=== PATIENT | male | born 1980 | race Asian ===

== ENCOUNTER 2017-09-23 20:34 | Outpatient (CLI) | payer SELFPAY | END 2017-09-23 20:35 | disposition EMS.NT | LOC: EMS 20:34 | PROVIDERS: ATTEND Surgery | DX: Z03.89 Encounter for observation for other suspected diseases and conditions ruled out (principal) ==

== ENCOUNTER 2017-12-26 12:41 | Emergency (ER) | payer MEDICAID ==
[2017-12-26] MEDS ORDERED: LORazepam 0.5 MG TABLET PO STA (15:04)
[2017-12-26] MEDS ORDERED: LISINOPRIL 5 MG TABLET PO STA (15:04)
--- NOTE | 2017-12-26 15:07 | ED Physician Documentation ---
History of Present Illness - Stated complaint Stated Complaint: HIGH BP - Chief complaint Chief Complaint: General - Additonal information Additional information: hx from pt 37 male enrolled in [facility] detox last drink three days ago during intake today his BP was high approx 170/105 so he was sent to ER to have medical clearance for detox he is a little shaky but does not feel anxious, is not seeing things no SOLARES, no CP, no numbness or weakness Review of Systems Constitutional: denies: Fever Eyes: denies: Decreased vision Cardiac: denies: Chest pain / pressure Neurologic: denies: Focal weakness, Numbness, Headache PD PAST MEDICAL HISTORY - Present Medications Home Medications: Ambulatory Orders Medication Instructions Recorded Confirmed Lisinopril 5 mg PO DAILY #30 tablet 12/26/17 - Allergies Allergies/Adverse Reactions: Allergies Allergy/AdvReac Type Severity Reaction Status Date / Time Penicillins Allergy Unknown Verified 12/26/17 12:49 PD ED PE NORMAL - Vitals Vital signs reviewed: Yes - HEENT HEENT: PERRL (somewhat limited fundoscopic 2/2 contricted pupils but no pepilledema appreciated) - Cardiac Cardiac: RRR - Respiratory Respiratory: No respiratory distress, Clear bilaterally - Neuro Neuro: Alert and oriented X 3, No motor deficit, Normal speech Results - Vitals Vitals: Vital Signs - 24 hr 12/26/17 12:46 Temperature 36.6 C Heart Rate 94 Respiratory 18 Rate Blood Pressure 170/100 H O2 Saturation 99 Oxygen O2 Source Room air PD MEDICAL DECISION MAKING - ED course ED course: pt with moderate asymptomatic BP could partly be due to wdrawal sx - so gave ativan after cnfirming pt not driving only prior note in EMR was for EMS call for intoxtion - he was hypertesnive then too - so perhaps has underlying HTN - will start low dose lisinopril but advised pt to fup PMD to recheck after detox tx and if BP down may trial dc of ACEI no s/sx end organ dysfxn and do not think pt needs labs EKG etc - Sepsis Event Vital Signs: Vital Signs - 24 hr 12/26/17 12:46 Temperature 36.6 C Heart Rate 94 Respiratory 18 Rate Blood Pressure 170/100 H O2 Saturation 99 Oxygen O2 Source Room air Departure - Departure Disposition: 01 Home, Self Care Clinical Impression: High blood pressure Qualifiers: Hypertension type: unspecified Qualified Code(s): I10 - Essential (primary) hypertension Condition: Good Instructions: ED Hypertension New Begin Tx Prescriptions: Lisinopril 5 mg PO DAILY #30 tablet Comments: Your blood pressure is high The high blood pressure does not seem to have caused any damage so far The elevated blood pressure could be partly due to alcohol withdrawal But the numbers were high enough that I have started you on a low dose blood pressure medication for now. After you complete detox, I suggest you follow up at [facility] for a recheck - you may not need to continue the medication I think it is safe for you to proceed with your detox program
[2017-12-26 16:01] VITALS: BP 148/98
== END 2017-12-26 16:00 | disposition home or self-care (01) ==
LOC: ED 12:41
DX: I10 Essential (primary) hypertension (principal); F10.239 Alcohol dependence with withdrawal, unspecified
CPT/HCPCS: 99283; A9270

== ENCOUNTER 2022-02-21 21:40 | Emergency (ER) | payer MEDICAID ==
[2022-02-21] MEDS ORDERED: oxyCODONE 5 MG TABLET PO STA (23:38)
[2022-02-21 23:43] VITALS: BP 131/84
--- NOTE | 2022-02-21 23:51 | ED Physician Documentation ---
History of Present Illness - Stated complaint Stated Complaint: SOA,BELLY DRAINAGE - Chief complaint Chief Complaint: Abd Pain - History obtained from History obtained from: Patient - Additonal information Additional information: 41-year-old male with history of alcoholic cirrhosis presents with distended abdomen over the past couple weeks. Patient has been in the process of obtaining primary doctor and arranging outpatient paracentesis. Denies fever, diarrhea, nausea. Review of Systems GI: reports: Abdominal Swelling. denies: Nausea, Diarrhea PD PAST MEDICAL HISTORY - Present Medications Home Medications: Ambulatory Orders Medication Instructions Recorded Confirmed lisinopriL [Lisinopril] 5 mg PO DAILY #30 tablet 12/26/17 Furosemide [Lasix] 20 mg PO DAILY #14 tablet 01/31/22 Spironolactone [Aldactone] 12.5 mg PO DAILY #7 tablet 01/31/22 - Allergies Allergies/Adverse Reactions: Allergies Allergy/AdvReac Type Severity Reaction Status Date / Time Penicillins Allergy Unknown Verified 02/21/22 21:55 PD ED PE NORMAL - Vitals Vital signs reviewed: Yes - General General: Alert and oriented X 3, No acute distress, Well developed/nourished - HEENT HEENT: Atraumatic, PERRL, EOMI - Neck Neck: Supple, no meningeal sign - Cardiac Cardiac: RRR - Respiratory Respiratory: No respiratory distress, Clear bilaterally - Abdomen Abdomen: Non tender, Other (Abdomen moderately distended with fluid wave) - Derm Derm: Normal color, Warm and dry - Extremities Extremities: No deformity - Neuro Neuro: Alert and oriented X 3, No motor deficit, No sensory deficit - Psych Psych: Normal mood, Normal affect Results - Vitals Vitals: Vital Signs - 24 hr 02/21/22 02/21/22 02/22/22 21:50 23:41 00:01 Temperature 36.1 C L Heart Rate 119 H 113 H 115 H Respiratory 16 18 20 Rate Blood Pressure 127/86 H 131/84 H 131/84 H O2 Saturation 96 95 94 Oxygen O2 Source Room air PD MEDICAL DECISION MAKING - ED course ED course: 41-year-old man presents with abdominal ascites causing him discomfort over the past several weeks. Advised outpatient follow-up for therapeutic paracentesis. Return precautions given. Departure - Departure Disposition: 01 Home, Self Care Clinical Impression: Abdominal ascites Condition: Stable Instructions: ED Ascites Follow-Up: Peri Rodriguez PA-C [Provider Admit Priv/Credential] - Comments: You were seen in the emergency department for evaluation of ascites. Please maintain the same dosage of your lasix, since your kidney function isn't great. You will need to schedule outpatient follow up to have this addressed. If you have fever (temperature >100.4) then please return immediately for reevaluation. I have enclosed a referral to a new primary provider. Discharge Date/Time: 02/22/22 00:02
== END 2022-02-22 00:02 | disposition home or self-care (01) ==
LOC: ED 21:40
DX: R18.8 Other ascites (principal)
CPT/HCPCS: 99281; 99282; A9270

== ENCOUNTER 2022-03-03 07:17 | Inpatient (IN) | payer MEDICAID ==
--- NOTE | 2022-03-03 08:22 | ED Physician Documentation ---
PD HPI ABD PAIN - Stated complaint Stated Complaint: STOMACH PRESSURE - Chief complaint Chief Complaint: Abd Pain - History obtained from History obtained from: Patient - Additional information Additional information: The patient comes to the emergency department with chief complaint of pressure and swelling in his abdomen, as well as some weakness. He states that he has a history of liver cirrhosis and has needed paracentesis from time to time. He is scheduled to see a GI specialist in mid March. He denies any trouble breathing but states that he has gained 11 pounds in the last 2 days. He is also noticing little more lower extremity swelling. No abdominal pain. No fevers. No other complaints at this time. Review of Systems Ten Systems: 10 systems reviewed and negative Constitutional: reports: Reviewed and negative Eyes: reports: Reviewed and negative Ears: reports: Reviewed and negative Nose: reports: Reviewed and negative Throat: reports: Reviewed and negative Cardiac: reports: Reviewed and negative Respiratory: reports: Reviewed and negative GI: reports: Abdominal Swelling. denies: Abdominal Pain, Nausea, Vomiting : reports: Reviewed and negative Skin: reports: Reviewed and negative Musculoskeletal: reports: Reviewed and negative Neurologic: reports: Reviewed and negative Psychiatric: reports: Reviewed and negative Endocrine: reports: Reviewed and negative Immunocompromised: reports: Reviewed and negative PD PAST MEDICAL HISTORY - Past Medical History Past Medical History: Yes GI: Cirrhosis - Present Medications Home Medications: Ambulatory Orders Medication Instructions Recorded Confirmed lisinopriL [Lisinopril] 5 mg PO DAILY #30 tablet 12/26/17 Furosemide [Lasix] 20 mg PO DAILY #14 tablet 01/31/22 03/03/22 Spironolactone [Aldactone] 12.5 mg PO DAILY #7 tablet 01/31/22 - Allergies Allergies/Adverse Reactions: Allergies Allergy/AdvReac Type Severity Reaction Status Date / Time Penicillins Allergy Unknown Verified 03/03/22 07:35 - Social History Does the pt smoke?: No Smoking Status: Never smoker PD ED PE NORMAL - Vitals Vital signs reviewed: Yes - General General: Alert and oriented X 3, No acute distress, Well developed/nourished - HEENT HEENT: Atraumatic, PERRL, EOMI, Moist mucous membranes, Other (Icterus) - Neck Neck: Supple, no meningeal sign - Cardiac Cardiac: RRR, No murmur, Strong equal pulses - Respiratory Respiratory: No respiratory distress, Clear bilaterally - Abdomen Abdomen: Soft, Non tender, Other (Distended, somewhat taut abdomen which is nontender.) - Derm Derm: Warm and dry, Other (Mild jaundice) - Extremities Extremities: No deformity, Other (2+ pitting edema left Lower extremity mildly greater than right.) - Neuro Neuro: Alert and oriented X 3, lamp decorator 2-12 intact, Normal speech - Psych Psych: Normal mood, Normal affect Results - Vitals Vitals: Vital Signs - 24 hr 03/03/22 03/03/22 03/03/22 07:31 08:12 10:13 Temperature 36.5 C Heart Rate 117 H 106 H 107 H Respiratory 16 16 20 Rate Blood Pressure 111/71 117/77 O2 Saturation 96 99 97 Oxygen O2 Source Room air - Labs Labs: Laboratory Tests 03/03/22 03/03/22 03/03/22 08:28 08:28 08:28 WBC 11.1 H RBC 3.05 L Hgb 11.3 L Hct 30.4 L MCV 99.7 H MCH 37.0 H MCHC 37.2 H RDW 11.9 L Plt Count 179 MPV 9.2 Neut # (Auto) 8.3 H Lymph # (Auto) 1.2 L [place] # (Auto) 1.3 H Eos # (Auto) 0.1 Baso # (Auto) 0.0 Absolute Nucleated RBC 0.00 Nucleated RBC % 0.0 PT 15.0 H INR 1.4 H Sodium 118 L* Potassium 3.4 L Chloride 81 L Carbon Dioxide 26 Anion Gap 11.0 BUN 8 Creatinine 0.7 Estimated GFR (MDRD) 126 Glucose 123 H Calcium 8.1 L Total Bilirubin 3.7 H AST 123 H ALT 25 Alkaline Phosphatase 202 H Total Protein 7.0 Albumin 2.9 L Globulin 4.1 Albumin/Globulin Ratio 0.7 L Lipase 58 H Nasal Adenovirus (PCR) Nasal B. parapertussis DNA (PCR) Nasal Coronavir 229E PCR Nasal Coronavir HKU1 PCR Nasal Coronavir NL63 PCR Nasal Coronavir OC43 PCR Nasal Enterovir/Rhinovir PCR Nasal Influenza B PCR Nasal Influenza A PCR Nasal Parainfluen 1 PCR Nasal Parainfluen 2 PCR Nasal Parainfluen 3 PCR Nasal Parainfluen 4 PCR Nasal RSV (PCR) Nasal B.pertussis DNA PCR Nasal C.pneumoniae (PCR) Manuel Human Metapneumo PCR Nasal M.pneumoniae (PCR) Nasal SARS-CoV-2 (PCR) 03/03/22 09:35 WBC RBC Hgb Hct MCV MCH MCHC RDW Plt Count MPV Neut # (Auto) Lymph # (Auto) [place] # (Auto) Eos # (Auto) Baso # (Auto) Absolute Nucleated RBC Nucleated RBC % PT INR Sodium Potassium Chloride Carbon Dioxide Anion Gap BUN Creatinine Estimated GFR (MDRD) Glucose Calcium Total Bilirubin AST ALT Alkaline Phosphatase Total Protein Albumin Globulin Albumin/Globulin Ratio Lipase Nasal Adenovirus (PCR) NOT DETECTED Nasal B. parapertussis DNA (PCR) NOT DETECTED Nasal Coronavir 229E PCR NOT DETECTED Nasal Coronavir HKU1 PCR NOT DETECTED Nasal Coronavir NL63 PCR NOT DETECTED Nasal Coronavir OC43 PCR NOT DETECTED Nasal Enterovir/Rhinovir PCR NOT DETECTED Nasal Influenza B PCR NOT DETECTED Nasal Influenza A PCR NOT DETECTED Nasal Parainfluen 1 PCR NOT DETECTED Nasal Parainfluen 2 PCR NOT DETECTED Nasal Parainfluen 3 PCR NOT DETECTED Nasal Parainfluen 4 PCR NOT DETECTED Nasal RSV (PCR) NOT DETECTED Nasal B.pertussis DNA PCR NOT DETECTED Nasal C.pneumoniae (PCR) NOT DETECTED Manuel Human Metapneumo PCR NOT DETECTED Nasal M.pneumoniae (PCR) NOT DETECTED Nasal SARS-CoV-2 (PCR) NOT DETECTED PD MEDICAL DECISION MAKING - ED course Complexity details: reviewed results, re-evaluated patient, considered differential, d/w patient ED course: The patient was worked up with labs and ultrasound. His sodium was found to be very low at 118. Ultrasound did show ascites in his abdomen. The Patient's case was discussed with Dr. Johnson who was on-call for Hospitalist service and she did agree to admit the patient to her service for hyponatremia. He will be evaluated for possible paracentesis while admitted. Patient is agreeable to this plan. Departure - Departure Disposition: 66 [facility] DC/Xfer Clinical Impression: Hyponatremia, End stage liver disease Condition: Serious Discharge Date/Time: 03/03/22 12:46
[2022-03-03 08:34] LABS: BASOPHILS % (AUTO) 0.3 %; EOSINOPHILS # (AUTO) 0.1 10^3/uL (0.0-0.7); HCT - HEMATOCRIT 30.4 % (42.0-52.0); HGB - HEMOGLOBIN 11.3 g/dL (14.0-18.0); LYMPHOCYTES # (AUTO) 1.2 10^3/uL (1.5-3.5); LYMPHOCYTES % (AUTO) 10.9 %; MEAN CORPUSCULAR HGB CONC 37.2 g/dL (32.0-36.0); MEAN CORPUSCULAR VOLUME 99.7 fL (80.0-94.0); MEAN PLATELET VOLUME 9.2 fL (7.4-11.4); MONOCYTES # (AUTO) 1.3 10^3/uL (0.0-1.0); MONOCYTES % (AUTO) 11.9 %; NEUTROPHILS # (AUTO) 8.3 10^3/uL (1.5-6.6); NEUTROPHILS % (AUTO) 75.4 %; PLT - PLATELET COUNT 179 10^3/uL (130-450); RED BLOOD COUNT 3.05 10^6/uL (4.70-6.10); RED CELL DISTRIBUTION WIDTH 11.9 % (12.0-15.0); WHITE BLOOD COUNT 11.1 x10^3/uL (4.8-10.8)
[2022-03-03 08:40] LABS: INR 1.4 (0.8-1.2)
[2022-03-03 08:50] LABS: ALBUMIN 2.9 g/dL (3.2-5.5); ALBUMIN/GLOBULIN RATIO 0.7 (1.0-2.2); BILIRUBIN,TOTAL 3.7 mg/dL (0.2-1.0); CALCIUM 8.1 mg/dL (8.5-10.3); CREATININE 0.7 mg/dL (0.6-1.2); POTASSIUM 3.4 mmol/L (3.5-5.0)
[2022-03-03] MEDS ORDERED: SODIUM CHLORIDE 0.9% 1,000 ML IV STA (09:33)
--- NOTE | 2022-03-03 10:17 | Ultrasound Report ---
PROCEDURE: Abdomen Limited INDICATIONS: fluid eval for paracentesis TECHNIQUE: Real-time focused scanning was performed of the abdomen, with image documentation. COMPARISON: Abdominal ultrasound dated 02/22/2022 FINDINGS: There is adequate ascites throughout the abdomen for paracentesis. 2 regions were marked w ithin the right lower quadrant and one within the left lower quadrant. IMPRESSION: Abdominal ascites adequate for paracentesis with overlying skin marked for possible paracentesis site s. Reviewed by: Maine Davison MD on 03/03/2022 10:16 AM PDT Approved by: Maine Davison MD on 03/03/2022 10:16 AM PDT Station ID: [id number]
[2022-03-03 10:40] LABS: B. PARAPERTUSSIS- RESP PCR PAN NOT DETECTED; B. PERTUSSIS- RESP PCR PANEL NOT DETECTED; C. PNEUMONIAE- RESP PCR PANEL NOT DETECTED; CORONAVIRUS 229E-RESP PCR NOT DETECTED; CORONAVIRUS HKU1-RESP PCR NOT DETECTED; CORONAVIRUS NL63-RESP PCR NOT DETECTED; CORONAVIRUS OC43-RESP PCR NOT DETECTED; HUMAN METAPNEUMOVIRUS NOT DETECTED; INFLUENZA A- RESP PCR PANEL NOT DETECTED; INFLUENZA B - RESP PCR PANEL NOT DETECTED; M. PNEUMONIAE- RESP PCR PANEL NOT DETECTED; PARAINFLUENZA VIRUS 1 NOT DETECTED; PARAINFLUENZA VIRUS 2 NOT DETECTED; PARAINFLUENZA VIRUS 3 NOT DETECTED; PARAINFLUENZA VIRUS 4 NOT DETECTED; RHINOVIRUS/ENTEROVIRUS NOT DETECTED; RSV- RESP PCR PANEL NOT DETECTED; SARS-CoV-2 -RESP PCR PANEL NOT DETECTED
[2022-03-03] MEDS ORDERED: SODIUM CHLORIDE FLUSH 0.9% 10 ML SYRINGE IVP PRN (12:09)
[2022-03-03] MEDS ORDERED: LORazepam 2 MG/ML VIAL IVP PRN (12:14)
[2022-03-03 12:35] LABS: BASOPHILS % (AUTO) 0.3 %; EOSINOPHILS # (AUTO) 0.1 10^3/uL (0.0-0.7); HCT - HEMATOCRIT 29.4 % (42.0-52.0); HGB - HEMOGLOBIN 10.9 g/dL (14.0-18.0); LYMPHOCYTES % (AUTO) 11.1 %; MEAN CORPUSCULAR HEMOGLOBIN 36.7 pg (27.0-31.0); MEAN CORPUSCULAR HGB CONC 37.1 g/dL (32.0-36.0); MEAN PLATELET VOLUME 9.5 fL (7.4-11.4); MONOCYTES % (AUTO) 10.7 %; NEUTROPHILS # (AUTO) 7.1 10^3/uL (1.5-6.6); NEUTROPHILS % (AUTO) 76.5 %; PLT - PLATELET COUNT 175 10^3/uL (130-450); RED BLOOD COUNT 2.97 10^6/uL (4.70-6.10); RED CELL DISTRIBUTION WIDTH 11.9 % (12.0-15.0); WHITE BLOOD COUNT 9.3 x10^3/uL (4.8-10.8)
[2022-03-03 12:48] LABS: CALCIUM 7.8 mg/dL (8.5-10.3); CREATININE 0.6 mg/dL (0.6-1.2); POTASSIUM 3.6 mmol/L (3.5-5.0)
[2022-03-03] MEDS ORDERED: lidocaine 1% 20 ML MDV ONE (12:57)
--- NOTE | 2022-03-03 12:57 | HISTORY & PHYSICAL EXAMINATION ---
Chief Complaint - Chief Complaint Chief Complaint: Uncomfortable abdominal distension History of Present Illness - Admitted From Admitted From:: ED - History Obtained From History obtained from: ED provider and the patient - History of Present Illness HPI Comment/Other: The patient is a 41 y/o male of descent, with Hx of prior alcohol abuse and developed cirrhosis of the liver. He comes to the emergency department with chief complaint of pressure and swelling in his abdomen, as well as c/o weakness. He states that he has needed paracentesis from twice in the past He is scheduled to see a GI specialist in [facility] in mid March. He denies any trouble breathing but states that he has gained 11 pounds in the last 2 days and also noticed more lower extremity swelling. No abdominal pain. No fevers. He underwent ultrasound in the ED and results state that he has fluid amenable to paracentesis. His labs done in ED shows serum sodium of 118. The ED provider reached out to the Hospitalist team to admit this patient for management of marked hyponatremia and alcoholic cirrhosis with ascites. We discussed his CODE BLUE wishes and he wants to be a full code. History - Past Medical History GI: reports: Cirrhosis - Family & Social History Family History: Mother: Alive and Well, Father: Alive and Well Family History Comment/Other: Diabetes runs in the family as well as thyroid disease. He has 2 sisters and 1 brother, no natural children. Living arrangement: At home Living Situation: With family Social History Notes: He lives with his mother. He drives a car. He has a job at a restaurant. He quit smoking 3 years ago. He used to drink a sixpack of beer or more a day. He has decreased this for the past several months now only has occasional glass of wine not every day. - Substance History Use: Uses substance without health or social issues: NONE Meds/Allgy - Home Medications Home Medications: Ambulatory Orders Medication Instructions Recorded Confirmed Furosemide [Lasix] 20 mg PO DAILY #14 tablet 01/31/22 03/03/22 Spironolactone [Aldactone] 25 mg PO DAILY 03/03/22 03/03/22 - Allergies Allergies/Adverse Reactions: Allergies Allergy/AdvReac Type Severity Reaction Status Date / Time Penicillins Allergy Unknown Verified 03/03/22 07:35 Review of Systems - Constitutional Constitutional: reports: Weakness - Cardiovascular Cariovascular: reports: Edema - Gastrointestinal Gastrointestinal: reports: Abdominal pain, Abdominal distention - All Other Systems All Other Systems: reports: Reviewed and negative Exam - Vital Signs Reviewed Vital Signs: Yes Vital Signs: Vital Signs x48h Temp Pulse Resp BP Pulse Ox 03/03/22 12:36 103 H 16 112/76 95 03/03/22 10:13 107 H 20 117/77 97 03/03/22 08:12 106 H 16 99 03/03/22 07:31 36.5 C 117 H 16 111/71 96 - Physical Exam General Appearance: positive: No acute distress, Other (Skin is dark and possibly icteric, has acne scars of cheeks.) Eyes Bilateral: positive: Other (Scleral icterus) ENT: positive: ENT inspection nml, No signs of dehydration Neck: positive: Nml inspection, No JVD Respiratory: positive: No respiratory distress, Breath sounds nml Cardiovascular: positive: Systolic murmur Abdomen: positive: Non-tender, Other (Mild to moderate distention, hepatomegaly palpable) Skin: positive: Other (Icteric) Neurologic/Psychiatric: positive: Oriented x3, Other (Nonfocal, no asterixis.) Conclusion/Plan - Problem List (1) Hyponatremia Conclusion/Plan: This is likely related to fluid intake with inadequate free water losses despite being on Lasix and spironolactone. Will order free water restriction. He got 1L saline in the ED. We will continue saline at a slow ratebecause of his marked ascites. Follow BMP daily and serum sodium q8h Continue his Lasix and increase and continue spironolactone daily (2) Cirrhosis of liver with ascites Conclusion/Plan: Will order paracentesis by interventional radiology to be done today. Continue with his diuretics as listed in #1. Continue to promote cessation from alcohol use. Will order CIWA protocol because there still is some alcohol use that he admitted to. Will order Thiamine po daily - Lab Results Fish Bones: 03/03/22 12:30 03/03/22 12:30 - Diagnostic Imaging Results Diagnostic Imaging Results: positive: Final report reviewed - Other Other Results/Comments: Attestation: The patient is expected to be discharged or transferred to another facility within 96 hours: Yes.
[2022-03-03] MEDS ORDERED: lidocaine 1% 20 ML MDV SUBQ ONE (14:36)
[2022-03-03] MEDS: THIAMINE 100 MG TABLET PO SCH (14:57)
[2022-03-03] MEDS: SPIRONOLACTONE 25 MG TABLET PO SCH (14:57)
[2022-03-03] MEDS: FUROSEMIDE 20 MG TABLET PO SCH (14:57)
--- NOTE | 2022-03-03 15:07 | Ultrasound Report ---
PROCEDURE: Abdominal Paracentesis INDICATIONS: Ascites re-accumulation TECHNIQUE: The indications, alternatives, benefits, risks, and complications of the procedure were explained to the patient. Written informed consent was obtained and placed in the chart. The abdomen and pelvis were examined sonographically, and an appropriate site was chosen for paracentesis. The skin was pre pared and draped in the usual sterile fashion, and 1% lidocaine was infiltrated from the skin down th rough the peritoneal surface. A 19-gauge catheter-covered needle was then introduced into the perito sameera space, the catheter was advanced and the needle was withdrawn, and thereafter peritoneal fluid w as withdrawn. The catheter was then removed and a dressing was applied. The fluid was discarded if the clinician did not order diagnostic testing of the fluid. COMPARISON: 02/22/2022 FINDINGS: Access site: Right lower quadrant Needle: One-Step centesis catheter with introducer needle. Fluid volume and description: 5 liters of clear gaudencio-colored ascites. Fluid sent for diagnostic testing: None sent for testing per ordering physician's request. Medications: 1% lidocaine for local anaesthesia. Complications: None. IMPRESSION: Successful ultrasound-guided therapeutic paracentesis. Reviewed by: Codey Potter MD on 03/03/2022 3:06 PM PDT Approved by: Codey Potter MD on 03/03/2022 3:06 PM PDT Station ID: [id number]
--- NOTE | 2022-03-03 16:13 | PHARMACY PROGRESS NOTE ---
- Best Possible Medication History Admit Date and Time: 03/03/22 1209 Processed by: Pharmacy Medication History completed: Yes Patient Interview: Completed Secondary Source(s): Insurance records As the person ultimately responsible for medication therapy, providers are able to order a medication from an existing home medication list in [facility] via the "Reconcile Routine" prior to Confirmation of that medication by legal support analyst. Such practice is discouraged except when the physician, in their clinical judgment, deems that a medical need exists for a medication without regard to previous use.
[2022-03-03 20:17] LABS: CALCIUM 7.7 mg/dL (8.5-10.3); CREATININE 0.6 mg/dL (0.6-1.2); POTASSIUM 3.4 mmol/L (3.5-5.0)
[2022-03-03] MEDS: SODIUM CHLORIDE FLUSH 0.9% 10 ML SYRINGE IVP SCH (20:41)
[2022-03-03] MEDS ORDERED: SODIUM CHLORIDE 0.9% 1,000 ML IV SCH (21:00)
[2022-03-04] MEDS: SODIUM CHLORIDE FLUSH 0.9% 10 ML SYRINGE IVP SCH ×3 (04:45→16:37)
[2022-03-04 06:04] LABS: CALCIUM 8.1 mg/dL (8.5-10.3); CREATININE 0.5 mg/dL (0.6-1.2); MAGNESIUM 1.5 mg/dL (1.7-2.8); PHOSPHORUS 2.9 mg/dL (2.5-4.6); POTASSIUM 3.4 mmol/L (3.5-5.0)
[2022-03-04] MEDS: SPIRONOLACTONE 25 MG TABLET PO SCH (08:21)
[2022-03-04] MEDS: THIAMINE 100 MG TABLET PO SCH (08:21)
[2022-03-04] MEDS: FUROSEMIDE 20 MG TABLET PO SCH (08:21)
[2022-03-04 13:33] LABS: CREATININE 0.6 mg/dL (0.6-1.2)
[2022-03-04] MEDS ORDERED: ALBUMIN 25% 12.5 GM/50 ML VIAL IV STA (14:49)
[2022-03-04] MEDS ORDERED: LORazepam 1 MG TABLET PO ONE (14:51)
--- NOTE | 2022-03-04 14:59 | PROVIDER PROGRESS NOTE ---
Assessment/Plan - Problem List (1) Hyponatremia Assessment/Plan: This is likely related to fluid intake with inadequate free water losses despite being on Lasix and spironolactone. Will order free water restriction. He got 1L saline in the ED. We will continue saline at a slow ratebecause of his marked ascites. Follow BMP daily and serum sodium q8h x5, then daily Continue his Lasix daily and we increased his spironolactone from 12.5 mg to 25 mg daily (2) Cirrhosis of liver with ascites Assessment/Plan: Continue with his diuretics as listed in #1. Continue to promote cessation from alcohol use. We ordered CIWA protocol because there still is some alcohol use that he admitted to. We ordered Thiamine po daily (3) S/P abdominal paracentesis Assessment/Plan: 5L of ascites fluid was removed yesterday afternoon by IR. It was a therapeutic tap, nothing sent for eval. Will give 1 Unit of albumen today, given the "soft" BP and marked tachycardia today (plus volume depletion by Echo, see #5). 4) Alcohol abuse His ammonia level came back at 43. He said today that nobody has ever started treatment with lactulose for him Plan to continue to promote cessation from alcohol use. We ordered CIWA protocol because there still is some alcohol use that he admitted to. He has been scoring 0 to 2. We started Thiamine po daily We will start Lactulose once daily today, he was counseled about diarrhea. 5) Tachycardia Yesterday he had resting heart rates of 100-1 05. Today with activity (walking from bed to bathroom), his heart rate went to 130 and sinus tachycardia. A set of orthostatic vital signs was done and he has "soft" blood pressure and tachycardia with each reading but does not have changes consistent with true orthostasis. He has never been evaluated to see if he has an alcoholic cardiomyopathy. Therefore a bedside Echo was performed by me, as a Board-Certified Entrepreneurship Program Director. The Echo showed: Normal atrial sizes. Normal aortic root diameter. Normal left ventricular size, wall thickness and normal/hyperdynamic LV contractility, EF 60 to 65%. Normal diastolic inflow. RV size upper limits of normal with preserved RV function. No pericardial effusion seen. Doppler of the valves shows trace tricuspid regurgitation. Therefore, the tachycardia is likely from volume depletion after paracentesis and poss from alcohol withdrawal. Will give 1 Unit of albumen today, given the "soft" BP and marked tachycardia today ( - Current Meds Current Meds: Current Medications Generic Name Dose Route Start Last Admin Trade Name Lyle PRN Reason Stop Dose Admin Furosemide 20 mg 03/03/22 12:13 03/04/22 08:21 Furosemide 20 Mg Tablet PO 20 mg DAILY CASSANDRA Administration Sodium Chloride 1,000 mls @ 0 mls/hr 03/03/22 21:00 03/03/22 20:42 Normal Saline 0.9% IV 20 mls/hr .Q0M CASSANDRA Administration TKO Sodium Chloride 10 ml 03/03/22 17:00 03/04/22 08:21 Sodium Chloride Flush 0.9% 10 Ml Syringe IVP 10 ml 0100,0900,1700 CASSANDRA Administration Spironolactone 25 mg 03/03/22 12:13 03/04/22 08:21 Spironolactone 25 Mg Tablet PO 25 mg DAILY CASSANDRA Administration Thiamine HCl 100 mg 03/03/22 13:00 03/04/22 08:21 Thiamine 100 Mg Tablet PO 100 mg DAILY CASSANDRA Administration - Lab Result Fish Bone Diagrams: 03/03/22 12:30 03/04/22 13:06 - Additional Planning My Orders: My Active Orders 03/03/22 Dinner Regular Diet [DIET] 03/03/22 17:00 Sodium Chloride Flush 0.9% [Normal Saline Flush 0.9%] 10 ml IVP 0100,0900,1700 03/03/22 21:00 Sodium Chloride 0.9% [Normal Saline 0.9%] 1,000 ml IV TKO 03/04/22 12:24 Orthostatic [Vital Signs - Orthostatic] [RC] DAILY 03/04/22 14:49 Albumin 25% [Albuminar-25] 12.5 gm in 50 ml IV ONCE 03/04/22 14:51 LORazepam [Ativan] 1 mg PO ONCE ONE 03/04/22 17:30 Lactulose [Enulose] 10 gm PO ONCE ONE 03/04/22 20:15 BMP - BASIC METABOLIC PANEL [CHEM] Q8H 03/05/22 05:00 BMP - BASIC METABOLIC PANEL [CHEM] DAILYLAB CBC - COMP BLD CT W/AUTO DIFF [HEME] DAILYLAB MAGNESIUM [CHEM] DAILYLAB Subjective - Subjective Patient Reports: Nausea (Had nausea last night and today after food. He also remembers nausea after receiving 2 units of albumin after his paracentesis in the ER a week ago. He feels tremulous and fidgety today.) Objective Vital Signs: Vital Signs - 24 hr 03/03/22 03/04/22 03/04/22 21:00 00:42 05:00 Temperature 37.5 C 36.9 C 36.9 C Heart Rate [ 117 H 118 H 108 H Monitoring electrodes] Respiratory 18 16 16 Rate Blood Pressure 101/53 L 102/83 H 114/57 L [Left Brachial artery] O2 Saturation 94 94 95 03/04/22 03/04/22 08:35 11:48 Temperature 37.2 C 36.9 C Heart Rate [ 120 H 115 H Monitoring electrodes] Respiratory 20 18 Rate Blood Pressure 115/64 109/56 L [Left Brachial artery] O2 Saturation 95 93 Oxygen O2 Source Room air I&O (Last 24 Hrs): Intake and Output Totals x24h 03/02/22 03/03/22 03/04/22 23:59 23:59 23:59 Intake Total 1000 120 Output Total 1200 Balance 1000 -1080 General: Alert, Oriented x3 HEENT: EOMI, Other (Icteric) Neck: Supple, No JVD Neuro: Alert, Other (Fine tremor of his hands) Cardiovascular: No murmurs, Other (Tachycardic but PMI in normal position) Respiratory: No respiratory distress, Breath sounds nml Abdomen: Other (Moderately distended, moderately soft, nontender, Liver edge is palpable.) Extremities: No clubbing, No edema Skin: No rashes (Icteric. Acne scars on cheeks.) - Results Results: Laboratory Results WBC 9.3 x10^3/uL (4.8-10.8) 03/03/22 12:30 RBC 2.97 10^6/uL (4.70-6.10) L 03/03/22 12:30 Hgb 10.9 g/dL (14.0-18.0) L 03/03/22 12:30 Hct 29.4 % (42.0-52.0) L 03/03/22 12:30 MCV 99.0 fL (80.0-94.0) H 03/03/22 12:30 MCH 36.7 pg (27.0-31.0) H 03/03/22 12:30 MCHC 37.1 g/dL (32.0-36.0) H 03/03/22 12:30 RDW 11.9 % (12.0-15.0) L 03/03/22 12:30 Plt Count 175 10^3/uL (130-450) 03/03/22 12:30 MPV 9.5 fL (7.4-11.4) 03/03/22 12:30 Neut # (Auto) 7.1 10^3/uL (1.5-6.6) H 03/03/22 12:30 Lymph # (Auto) 1.0 10^3/uL (1.5-3.5) L 03/03/22 12:30 [place] # (Auto) 1.0 10^3/uL (0.0-1.0) 03/03/22 12:30 Eos # (Auto) 0.1 10^3/uL (0.0-0.7) 03/03/22 12:30 Baso # (Auto) 0.0 10^3/uL (0.0-0.1) 03/03/22 12:30 Absolute Nucleated RBC 0.00 x10^3/uL 03/03/22 12:30 Nucleated RBC % 0.0 /100WBC 03/03/22 12:30 PT 15.0 secs (9.9-12.6) H 03/03/22 08:28 INR 1.4 (0.8-1.2) H 03/03/22 08:28 Sodium 128 mmol/L (135-145) L 03/04/22 13:06 Potassium 3.0 mmol/L (3.5-5.0) L 03/04/22 13:06 Chloride 92 mmol/L (101-111) L 03/04/22 13:06 Carbon Dioxide 27 mmol/L (21-32) 03/04/22 13:06 Anion Gap 9.0 (6-13) 03/04/22 13:06 BUN 6 mg/dL (6-20) 03/04/22 13:06 Creatinine 0.6 mg/dL (0.6-1.2) 03/04/22 13:06 Estimated GFR (MDRD) 150 (>89) 03/04/22 13:06 Glucose 131 mg/dL (70-100) H 03/04/22 13:06 Calcium 8.0 mg/dL (8.5-10.3) L 03/04/22 13:06 Phosphorus 2.9 mg/dL (2.5-4.6) 03/04/22 05:36 Magnesium 1.5 mg/dL (1.7-2.8) L 03/04/22 05:36 Total Bilirubin 3.7 mg/dL (0.2-1.0) H 03/03/22 08:28 AST 123 IU/L (10-42) H 03/03/22 08:28 ALT 25 IU/L (10-60) 03/03/22 08:28 Alkaline Phosphatase 202 IU/L (42-121) H 03/03/22 08:28 Ammonia 43.0 umol/L (7-35) H 03/04/22 05:36 Total Protein 7.0 g/dL (6.7-8.2) 03/03/22 08:28 Albumin 2.9 g/dL (3.2-5.5) L 03/03/22 08:28 Globulin 4.1 g/dL (2.1-4.2) 03/03/22 08:28 Albumin/Globulin Ratio 0.7 (1.0-2.2) L 03/03/22 08:28 Lipase 58 U/L (22-51) H 03/03/22 08:28 Nasal Adenovirus (PCR) NOT DETECTED 03/03/22 09:35 Nasal B. parapertussis DNA (PCR) NOT DETECTED 03/03/22 09:35 Nasal Coronavir 229E PCR NOT DETECTED 03/03/22 09:35 Nasal Coronavir HKU1 PCR NOT DETECTED 03/03/22 09:35 Nasal Coronavir NL63 PCR NOT DETECTED 03/03/22 09:35 Nasal Coronavir OC43 PCR NOT DETECTED 03/03/22 09:35 Nasal Enterovir/Rhinovir PCR NOT DETECTED 03/03/22 09:35 Nasal Influenza B PCR NOT DETECTED 03/03/22 09:35 Nasal Influenza A PCR NOT DETECTED 03/03/22 09:35 Nasal Parainfluen 1 PCR NOT DETECTED 03/03/22 09:35 Nasal Parainfluen 2 PCR NOT DETECTED 03/03/22 09:35 Nasal Parainfluen 3 PCR NOT DETECTED 03/03/22 09:35 Nasal Parainfluen 4 PCR NOT DETECTED 03/03/22 09:35 Nasal RSV (PCR) NOT DETECTED 03/03/22 09:35 Nasal B.pertussis DNA PCR NOT DETECTED 03/03/22 09:35 Nasal C.pneumoniae (PCR) NOT DETECTED 03/03/22 09:35 Manuel Human Metapneumo PCR NOT DETECTED 03/03/22 09:35 Nasal M.pneumoniae (PCR) NOT DETECTED 03/03/22 09:35 Nasal SARS-CoV-2 (PCR) NOT DETECTED 03/03/22 09:35
[2022-03-04] MEDS ORDERED: LACTULOSE 10 GM /15 ML UDC PO ONE (17:30)
[2022-03-04 21:03] LABS: CALCIUM 7.8 mg/dL (8.5-10.3); CREATININE 0.7 mg/dL (0.6-1.2); POTASSIUM 3.4 mmol/L (3.5-5.0)
[2022-03-05] MEDS: SODIUM CHLORIDE FLUSH 0.9% 10 ML SYRINGE IVP SCH ×2 (01:16→08:42)
[2022-03-05 05:05] LABS: BASOPHILS % (AUTO) 0.4 %; EOSINOPHILS # (AUTO) 0.1 10^3/uL (0.0-0.7); EOSINOPHILS % (AUTO) 1.2 %; HGB - HEMOGLOBIN 10.3 g/dL (14.0-18.0); LYMPHOCYTES # (AUTO) 1.3 10^3/uL (1.5-3.5); LYMPHOCYTES % (AUTO) 13.8 %; MEAN CORPUSCULAR HEMOGLOBIN 37.5 pg (27.0-31.0); MEAN CORPUSCULAR HGB CONC 36.8 g/dL (32.0-36.0); MEAN CORPUSCULAR VOLUME 101.8 fL (80.0-94.0); MEAN PLATELET VOLUME 9.2 fL (7.4-11.4); MONOCYTES # (AUTO) 1.3 10^3/uL (0.0-1.0); MONOCYTES % (AUTO) 13.2 %; NEUTROPHILS # (AUTO) 6.9 10^3/uL (1.5-6.6); NEUTROPHILS % (AUTO) 70.8 %; PLT - PLATELET COUNT 184 10^3/uL (130-450); RED BLOOD COUNT 2.75 10^6/uL (4.70-6.10); RED CELL DISTRIBUTION WIDTH 12.2 % (12.0-15.0); WHITE BLOOD COUNT 9.7 x10^3/uL (4.8-10.8)
[2022-03-05 05:15] LABS: CALCIUM 7.9 mg/dL (8.5-10.3); CREATININE 0.5 mg/dL (0.6-1.2); MAGNESIUM 1.4 mg/dL (1.7-2.8); POTASSIUM 3.2 mmol/L (3.5-5.0)
[2022-03-05 07:52] VITALS: BP 108/59
[2022-03-05] MEDS ORDERED: MAGNESIUM SULFATE 1 GM in SODIUM CHLORIDE 0.9% 50 ML IV ONE (08:22)
--- NOTE | 2022-03-05 08:26 | Discharge Plan ---
Discharge Plan Problem Reviewed?: Yes Disposition: Home, Self Care Condition: Fair Prescriptions: Spironolactone [Aldactone] 37.5 mg PO DAILY #45 tab Lactulose [Enulose] 10 gm PO DAILY #30 packet Magnesium Sulfate 100 mg PO DAILY #30 cap Potassium Chloride [Micro-K] 10 meq PO DAILY #30 cap Thiamine HCl [Vitamin B-1] 100 mg PO DAILY #30 tablet Diet: Regular Activity Restrictions: Activity as Tolerated Shower Restrictions: No Driving Restrictions: No Instruction Topics: Ammonia, Cirrhosis Liver Dc Health Concerns: You were admitted to the hospital to treat a severely low sodium level in your bloodstream. In addition, you needed another paracentesis (fluid removal from the abdomen) which is re-accumulating because of liver cirrhosis. You are being discharged home with some changes of medications and some new medications. All new prescriptions were electronically sent to your [facility] pharmacy in [place]. Please follow the new list of medications to take. Please keep your appointments with your PCP and a Vegetable Trimmer. Continue to abstain from alcohol. Plan of Treatment: As above. The new prescriptions were electronically sent to your pharmacy. Care Goals: Improvement in symptoms and stabilization are the goals. Assessment: The patient understands and is agreeable with the plan. Additional Instructions or Follow Up instructions: If you have new or worsening symptoms, call your PCP or Vegetable Trimmer or come to the ER. No Smoking: If you smoke, Please STOP! Call for help. Follow-up with: BRANDEN REECE PA-C [Primary Care Provider] -
[2022-03-05] MEDS: FUROSEMIDE 20 MG TABLET PO SCH (08:42)
[2022-03-05] MEDS: SPIRONOLACTONE 25 MG TABLET PO SCH (08:42)
[2022-03-05] MEDS: THIAMINE 100 MG TABLET PO SCH (08:42)
[2022-03-05] MEDS ORDERED: POTASSIUM CHLORIDE 10 MEQ CAPSULE PO SCH (09:00)
--- NOTE | 2022-03-05 09:14 | DISCHARGE SUMMARY ---
Discharge Summary Admit Date: 03/03/22 Discharge Date: 03/05/22 Discharging Provider: Dr Samia Johnson Primary Care Provider: LAZARA Smith Condition at Discharge: Fair Discharge Disposition: 01 Home, Self Care - HPI History of Present Illness: The patient is a 41 y/o male of descent, with Hx of prior alcohol abuse and developed cirrhosis of the liver. He comes to the emergency department with chief complaint of pressure and swelling in his abdomen, as well as c/o weakness. He states that he has needed paracentesis done twice in the past He is scheduled to see a GI specialist in [facility] in mid March. He denies any trouble breathing but states that he has gained 11 pounds in the last 2 days and also noticed more lower extremity swelling. No abdominal pain. No fevers. He now drinks occasional 1 glass of alcohol at night. He used to drink a sixpack of beer daily. He underwent abdominal ultrasound in the ED and results stated that he has ascites fluid amenable to paracentesis. His labs done in ED shows serum sodium of 118. The ED provider reached out to the Hospitalist team to admit this patient for management of marked hyponatremia and alcoholic cirrhosis with ascites. We discussed his CODE BLUE wishes and he wants to be a full code. - HOSPITAL COURSE Hospital Course: (1) Hyponatremia This was likely related to inadequate free water losses despite being on Lasix and spironolactone. He got 1L saline in the ED and we continued iv saline at a slow rate because of his marked ascites. We continued his Lasix daily and we increased his spironolactone from 12.5 mg to 25 mg daily to 37.5 mg daily and he was discharged on this dose. His serum sodium improved slowly 118>> 120>> 124>> 128 for several readings and it was 129 at discharge. (2) Cirrhosis of liver with ascites He was kept on both Lasix and Spironolactone. His ammonia level came back at 43, and the following day was 56. He said that nobody had ever started him on Lactulose. Thus he was put on Enulose 10gm po daily and discharged on this. He was counseled about diarrhea. We also started him on Thiamine 100 mg po daily. (3) S/P abdominal paracentesis He underwent a therapeutic tap with 5L of ascites fluid removed by IR. He got 1 Unit of Albumen the following day, given his "soft" BP and marked tachycardia. 4) Alcohol abuse We continued to promote cessation from alcohol use. 5) Tachycardia He presented with a resting heart rate of 100-105. After the paracentesis, with activity (walking from bed to bathroom), his heart rate went to 130 in sinus tachycardia. A set of orthostatic vital signs was done and he has "soft" blood pressure and tachycardia with each reading but does not have changes consistent with true orthostasis. He had never been evaluated to see if he has an alcoholic cardiomyopathy. Therefore a bedside Echo was performed by me, as a Board- Certified Lehr Attendant. The Echo showed: Normal atrial sizes. Normal aortic root diameter. Normal left ventricular size, wall thickness and normal/hyperdynamic LV contractility, EF 60 to 65%. Normal diastolic inflow. RV size upper limits of normal with preserved RV function. No pericardial effusion seen. Doppler of the valves shows trace tricuspid regurgitation. Therefore, the tachycardia was likely from intravascular volume depletion after paracentesis and possibly from alcohol withdrawal. He received 1 Unit of Albumen. On the day of discharge, his resting heart rate was 103. Orthostatic VS were repeated and were negative. (6) Hypokalemia He required potassium replacement. He was discharged to take potassium chloride 10 M EQ daily. (7) Hypomagnesimia He required magnesium replacement. He was discharged to take magnesium 100 mg daily. - ALLERGIES Allergies/Adverse Reactions: Allergies Allergy/AdvReac Type Severity Reaction Status Date / Time Penicillins Allergy Unknown Verified 03/03/22 07:35 - MEDICATIONS Home Medications: Ambulatory Orders Medication Instructions Recorded Confirmed Furosemide [Lasix] 20 mg PO DAILY #14 tablet 01/31/22 03/03/22 Spironolactone [Aldactone] 25 mg PO DAILY 03/03/22 03/03/22 Lactulose [Enulose] 10 gm PO DAILY #30 packet 03/05/22 Magnesium Sulfate 100 mg PO DAILY #30 cap 03/05/22 Potassium Chloride [Micro-K] 10 meq PO DAILY #30 cap 03/05/22 Spironolactone [Aldactone] 37.5 mg PO DAILY #45 tab 03/05/22 Thiamine HCl [Vitamin B-1] 100 mg PO DAILY #30 tablet 03/05/22 - PHYSICAL EXAM AT DISCHARGE General Appearance: positive: No acute distress, Alert, Other (Acne scars of cheeks) Eyes Bilateral: positive: EOMI, Other (Sclera icteric) ENT: positive: ENT inspection nml, No signs of dehydration Neck: positive: Nml inspection, No JVD Respiratory: positive: No respiratory distress, Breath sounds nml Cardiovascular: positive: No murmur, Tachycardia Abdomen: positive: Non-tender, Other (Moderately distended, palpable liver edge, fluid wave present.) Skin: positive: Dry, Other (Icteric) Extremities: positive: Non-tender, No pedal edema Neurologic/Psychiatric: positive: Oriented x3 (Nonfocal, no asterixis but a resting hand tremor was intermittently present.) - LABS Result Diagrams: 03/05/22 04:47 03/05/22 04:47 - DIAGNOSTIC IMAGING Diagnostic Imaging Results: Final report reviewed - FOLLOW UP Follow Up: Keep upcoming appointments with PCP and with new Car Driver - TIME SPENT Time Spent in Discharge (Minutes): 30
== END 2022-03-05 11:14 | disposition home or self-care (01) | DRG 433 ==
LOC: ED 07:17 → MS2 12:09
PROVIDERS: ADMIT Internal Medicine; ATTEND Internal Medicine
PROC: 0W9G3ZZ Drainage of Peritoneal Cavity, Percutaneous Approach (ICD-10-PCS; principal; 2022-03-03)
DX: K70.31 Alcoholic cirrhosis of liver with ascites (principal); E87.1 Hypo-osmolality and hyponatremia; F10.10 Alcohol abuse, uncomplicated; E87.6 Hypokalemia; E83.42 Hypomagnesemia; K72.10 Chronic hepatic failure without coma; Z20.822 Contact with and (suspected) exposure to COVID-19; Z79.899 Other long term (current) drug therapy; Z87.891 Personal history of nicotine dependence
CPT/HCPCS: 36415; 49083; 76705; 80048; 80053; 82140; 83690; 83735; 84100; 85025; 85610; 87633; 96360; 99285; A9270; J7040; J8499; P9047

== ENCOUNTER 2022-03-13 18:23 | Emergency (ER) | payer MEDICAID ==
[2022-03-13 19:02] LABS: BASOPHILS # (AUTO) 0.1 10^3/uL (0.0-0.1); BASOPHILS % (AUTO) 0.4 %; EOSINOPHILS # (AUTO) 0.1 10^3/uL (0.0-0.7); EOSINOPHILS % (AUTO) 0.9 %; HCT - HEMATOCRIT 31.1 % (42.0-52.0); HGB - HEMOGLOBIN 11.2 g/dL (14.0-18.0); LYMPHOCYTES # (AUTO) 1.3 10^3/uL (1.5-3.5); LYMPHOCYTES % (AUTO) 10.2 %; MEAN CORPUSCULAR HEMOGLOBIN 37.6 pg (27.0-31.0); MEAN CORPUSCULAR VOLUME 104.4 fL (80.0-94.0); MEAN PLATELET VOLUME 8.6 fL (7.4-11.4); MONOCYTES # (AUTO) 1.4 10^3/uL (0.0-1.0); MONOCYTES % (AUTO) 11.1 %; NEUTROPHILS # (AUTO) 9.5 10^3/uL (1.5-6.6); NEUTROPHILS % (AUTO) 76.8 %; PLT - PLATELET COUNT 264 10^3/uL (130-450); RED BLOOD COUNT 2.98 10^6/uL (4.70-6.10); RED CELL DISTRIBUTION WIDTH 12.9 % (12.0-15.0); WHITE BLOOD COUNT 12.4 x10^3/uL (4.8-10.8)
[2022-03-13 19:08] LABS: INR 1.3 (0.8-1.2); PT - PROTHROMBIN TIME 14.3 secs (9.9-12.6)
[2022-03-13 19:16] LABS: ALBUMIN 2.8 g/dL (3.2-5.5); ALBUMIN/GLOBULIN RATIO 0.6 (1.0-2.2); BILIRUBIN,TOTAL 4.3 mg/dL (0.2-1.0); CALCIUM 9.3 mg/dL (8.5-10.3); CREATININE 0.6 mg/dL (0.6-1.2); POTASSIUM 3.8 mmol/L (3.5-5.0); TOTAL PROTEIN 7.6 g/dL (6.7-8.2)
[2022-03-13] MEDS ORDERED: ALBUMIN 25% 12.5 GM/50 ML VIAL IV STA (20:07)
[2022-03-13] MEDS ORDERED: LORazepam 1 MG TABLET PO STA (20:08)
--- NOTE | 2022-03-13 20:51 | ED Physician Documentation ---
History of Present Illness - Stated complaint Stated Complaint: FLUID ON BELLY - Chief complaint Chief Complaint: Abd Pain - History obtained from History obtained from: Patient, Family (sister) - Additonal information Additional information: 41-year-old man with past medical history of alcoholic cirrhosis with frequent paracentesis here to hospital presents with Diffuse constant gradual onset achin g abdominal pain with a sensation of tightness, nonradiating, associated with 5 pound weight gain over the past couple of days. Patient states that he has been getting uncomfortable and was unable to go to work today due to pain. denies fever or any other symptoms. He reports his last etoh was this sunday. Chart review: 02/22 ED paracentesis of 6L with albumin 03/03 admission and paracentesis of 5L with albumin Review of Systems Ten Systems: 10 systems reviewed and negative Constitutional: denies: Fever, Chills GI: reports: Abdominal Pain. denies: Nausea, Vomiting, Diarrhea PD PAST MEDICAL HISTORY - Past Medical History Past Medical History: Yes GI: Cirrhosis - Past Surgical History General: Appendectomy - Present Medications Home Medications: Ambulatory Orders Medication Instructions Recorded Confirmed Furosemide [Lasix] 20 mg PO DAILY #14 tablet 01/31/22 03/03/22 Spironolactone [Aldactone] 25 mg PO DAILY 03/03/22 03/03/22 Lactulose [Enulose] 10 gm PO DAILY #30 packet 03/05/22 Magnesium Sulfate 100 mg PO DAILY #30 cap 03/05/22 Potassium Chloride [Micro-K] 10 meq PO DAILY #30 cap 03/05/22 Spironolactone [Aldactone] 37.5 mg PO DAILY #45 tab 03/05/22 Thiamine HCl [Vitamin B-1] 100 mg PO DAILY #30 tablet 03/05/22 - Allergies Allergies/Adverse Reactions: Allergies Allergy/AdvReac Type Severity Reaction Status Date / Time Penicillins Allergy Unknown Verified 03/13/22 18:40 - Social History Does the pt smoke?: No Smoking Status: Never smoker PD ED PE NORMAL - Vitals Vital signs reviewed: Yes - General General: Alert and oriented X 3, No acute distress, Well developed/nourished - HEENT HEENT: Atraumatic, PERRL, EOMI, Moist mucous membranes - Neck Neck: Supple, no meningeal sign - Cardiac Cardiac: Other (tachycardic rate, regular rhythm) - Respiratory Respiratory: No respiratory distress, Clear bilaterally - Abdomen Abdomen: Other (diffuse discomfort to palpation. firm and distended) - Derm Derm: Normal color, Warm and dry - Extremities Extremities: No deformity - Neuro Neuro: Alert and oriented X 3, No motor deficit, No sensory deficit - Psych Psych: Normal mood, Normal affect Results - Vitals Vitals: Vital Signs - 24 hr 03/13/22 03/13/22 18:36 18:40 Temperature 37.1 C 37.1 C Heart Rate 124 H 124 H Respiratory 16 16 Rate Blood Pressure 130/79 130/79 O2 Saturation 98 98 Oxygen O2 Source Room air - Labs Labs: Laboratory Tests 03/13/22 03/13/22 03/13/22 18:56 18:56 18:56 WBC 12.4 H RBC 2.98 L Hgb 11.2 L Hct 31.1 L MCV 104.4 H MCH 37.6 H MCHC 36.0 RDW 12.9 Plt Count 264 MPV 8.6 Neut # (Auto) 9.5 H Lymph # (Auto) 1.3 L [place] # (Auto) 1.4 H Eos # (Auto) 0.1 Baso # (Auto) 0.1 Absolute Nucleated RBC 0.00 Nucleated RBC % 0.0 PT 14.3 H INR 1.3 H Sodium 128 L Potassium 3.8 Chloride 89 L Carbon Dioxide 29 Anion Gap 10.0 BUN 9 Creatinine 0.6 Estimated GFR (MDRD) 150 Glucose 125 H Calcium 9.3 Total Bilirubin 4.3 H AST 171 H ALT 30 Alkaline Phosphatase 239 H Ammonia Total Protein 7.6 Albumin 2.8 L Globulin 4.8 H Albumin/Globulin Ratio 0.6 L Lipase 64 H 03/13/22 18:56 WBC RBC Hgb Hct MCV MCH MCHC RDW Plt Count MPV Neut # (Auto) Lymph # (Auto) [place] # (Auto) Eos # (Auto) Baso # (Auto) Absolute Nucleated RBC Nucleated RBC % PT INR Sodium Potassium Chloride Carbon Dioxide Anion Gap BUN Creatinine Estimated GFR (MDRD) Glucose Calcium Total Bilirubin AST ALT Alkaline Phosphatase Ammonia 37.7 H Total Protein Albumin Globulin Albumin/Globulin Ratio Lipase Procedures - Paracentesis Preparation: Consent obtained, Ultrasound guidance, Sterile prep and drape, Local anesthesia Location: LLQ Technique: Z-tract, Catheter over needle Fluid: Clear Aftercare: No complications, Patient tolerated well, Dressing applied PD MEDICAL DECISION MAKING - ED course ED course: 40-year-old man presented with abdominal ascites and tachycardia, improved status post Ativan and paracentesis (2 liters removed). Patient plans to f/u with his new PCP on [place] in addition to GI for endoscopy mid march. advised him to request referral for outpatient IR drainage. MELD score 22 (20% probability of 3 month mortality). Patient unfortunately is still actively drinking therefore unlikely to be candidate for liver transplant. may benefit from palliative care/hospice referral. discussed with patient and sister. advised drinking cessation. plan to f/u outpatient IR and palliative care. referral provided to Keena Díaz. return precautions given. Departure - Departure Disposition: Home, Self Care Clinical Impression: Abdominal ascites, Cirrhosis Condition: Good Instructions: Cirrhosis Liver Dc Follow-Up: Keena Díaz ARNP [Provider Admit Priv/Credential] - Comments: You were seen in the emergency department for liver cirrhosis and abdominal ascites and a paracentesis was performed. Please monitor for signs of infection including fever, redness at the wound site, swelling or increased pain. return to the ED if you have new or worsening symptoms or other concerns. I am enclosing a referral to Keena Díaz, a palliative care nurse practitioner on the [facility]. Please also call tomorrow on the main hospital line and ask for interventional radiology to schedule outpatient paracentesis every two weeks. You can say that Dr. Cummins (emergency department) and Dr. Alexis (hospitalist) referred you. They may require Preauthorization from a primary care provider so make sure that you make an appointment with your primary as well. Please consider quitting drinking because this will make you eligible for liver transplant which could be potentially life-saving. If you are drinking daily, do not quit all at once because this can be potentially dangerous. You will need help from a doctor to wean off of alcohol. Forms: Activity restrictions
[2022-03-13 21:34] VITALS: BP 122/83
== END 2022-03-13 21:30 | disposition home or self-care (01) ==
LOC: ED 18:23
DX: K70.31 Alcoholic cirrhosis of liver with ascites (principal); R00.0 Tachycardia, unspecified
CPT/HCPCS: 36415; 49082; 80053; 82140; 83690; 85025; 85610; 99283; J8499

== ENCOUNTER 2022-12-01 09:52 | Emergency (ER) | payer MEDICAID ==
--- NOTE | 2022-12-01 10:29 | ED Physician Documentation ---
PD HPI ABD PAIN - Stated complaint Stated Complaint: WATER RETENTION - Chief complaint Chief Complaint: Abd Pain - History obtained from History obtained from: Patient - History of Present Illness Timing - onset: How many weeks ago (1) Timing - duration: Weeks (1) Timing - details: Gradual onset, Still present Quality: Aching, Fullness/distended Location: All over / everywhere, Periumbilical Radiation: No: Chest, Lower back Improved by: Laying still Worsened by: Eating, Breathing, Palpation Associated symptoms: No: Fever, Nausea, Vomiting, Diarrhea, Constipation, Dysuria, Loss of appetite Similar symptoms before: Diagnosis (liver failure with ascites.) Recently seen: Not recently seen Review of Systems Constitutional: denies: Fever, Chills Nose: denies: Rhinorrhea / runny nose, Congestion Throat: denies: Sore throat Respiratory: denies: Cough GI: reports: Abdominal Pain (mild), Abdominal Swelling. denies: Nausea, Vomiting, Diarrhea, Bloody / black stool (he states some mild red blood on toilet paper when wiping after BMs. No melena nor purple colored stools. Has had occasional mild nosebleeds. No large volume. Urinating wihtout blood.) PD PAST MEDICAL HISTORY - Past Medical History Cardiovascular: None Respiratory: None GI: Cirrhosis - Past Surgical History General: Appendectomy - Present Medications Home Medications: Ambulatory Orders Medication Instructions Recorded Confirmed Furosemide [Lasix] 20 mg PO DAILY #14 tablet 01/31/22 03/03/22 Spironolactone [Aldactone] 25 mg PO DAILY 03/03/22 03/03/22 Lactulose [Enulose] 10 gm PO DAILY #30 packet 03/05/22 Magnesium Sulfate 100 mg PO DAILY #30 cap 03/05/22 Potassium Chloride [Micro-K] 10 meq PO DAILY #30 cap 03/05/22 Spironolactone [Aldactone] 37.5 mg PO DAILY #45 tab 03/05/22 Thiamine HCl [Vitamin B-1] 100 mg PO DAILY #30 tablet 03/05/22 Ferrous Gluconate 324 mg PO DAILY #30 tablet 12/01/22 - Allergies Allergies/Adverse Reactions: Allergies Allergy/AdvReac Type Severity Reaction Status Date / Time Penicillins Allergy Unknown Verified 12/01/22 10:05 - Social History Does the pt smoke?: No Smoking Status: Never smoker PD ED PE NORMAL - Vitals Vital signs reviewed: Yes - General General: Alert and oriented X 3, No acute distress, Well developed/nourished - Neck Neck: Supple, no meningeal sign, No adenopathy - Cardiac Cardiac: RRR, No murmur - Respiratory Respiratory: No respiratory distress, Clear bilaterally - Abdomen Abdomen: Soft, Non tender, No organomegaly, Other (distended with firmness and some general tenderness mild more to periumbilical area. No redness nor rash.). No: Normal bowel sounds (decreased) Results - Vitals Vitals: Vital Signs - 24 hr 12/01/22 12/01/22 12/01/22 10:02 12:09 13:13 Temperature 36.3 C L Heart Rate 92 84 81 Respiratory 18 18 16 Rate Blood Pressure 103/67 105/69 107/69 O2 Saturation 100 97 97 Oxygen O2 Source Room air - Labs Labs: Microbiology 12/01/22 12:37 Gram Stain - Final Ascities Fluid Laboratory Tests 12/01/22 12/01/22 12/01/22 10:58 10:58 10:58 WBC 4.8 RBC 2.13 L Hgb 7.1 L Hct 20.6 L MCV 96.7 H MCH 33.3 H MCHC 34.5 RDW 15.8 H Plt Count 108 L MPV 9.7 Neut # (Auto) 2.7 Lymph # (Auto) 1.2 L [place] # (Auto) 0.6 Eos # (Auto) 0.3 Baso # (Auto) 0.0 Absolute Nucleated RBC 0.00 Nucleated RBC % 0.0 Sodium 131 L Potassium 4.2 Chloride 100 L Carbon Dioxide 22 Anion Gap 9.0 BUN 19 Creatinine 1.9 H Estimated GFR (MDRD) 39 L Glucose 155 H Calcium 9.0 Magnesium 2.0 Iron 34 L TIBC 267 % Saturation 13 L Transferrin 191 Total Bilirubin 1.4 H AST 67 H ALT 15 Alkaline Phosphatase 105 Total Protein 7.8 Albumin 3.0 L Globulin 4.8 H Albumin/Globulin Ratio 0.6 L Lipase 57 H Procedures - Paracentesis - Major Preparation: Consent obtained, Ultrasound guidance, Sterile prep and drape, Local anesthesia Location: RLQ Technique: Z-tract, Catheter over needle Fluid: Clear, Sent for gram stain, Sent for culture, Volume - enter cc (2200 obtained - it started briskly out but then slowed. U/S showed the catheter was in the ascitic fluid area of abdomen. It was just reluctant to drain more volume.) Aftercare: No complications, Patient tolerated well, Dressing applied PD Medical Decision Making - ED course Complexity details: reviewed results (he is anemic with low iron. Last cbc here was 11 hgb but awhile ago. He denies transfusions. Discussion with him about transfusion at this time and he prefers to wait and will discuss with PMD/GI specialist. Not trasnfused at this time.), re-evaluated patient, considered differential (history of liver failure with ascites. Had been of meds for a week due to being out of town unexpectedly. Had weight gain and is tight/uncomfortable in abdomen. Here for eval and possible parecentesis. Has had taps 2-3 maryellen previously without problems. ), d/w patient ED course: The patient states he was visiting relatives out of town intending to be just for a day so he did not bring his medicines. It ended up being a week so he was without his typical diuretics etc. He states he did have a apparently 20 pound weight gain over the last couple of weeks or more. However he is feeling tighter in his abdomen now. He typically does well on his usual medication regimens. He states he has had occasional nosebleeds and noted traces of red blood with wiping after bowel movement. He denies melena or GI bleed per se. He does his history of anemia. He had not had blood counts done locally here for a little while so last 1 we have on record is 11 hemoglobin. Currently 7.1. I talked to him about potentially receiving a unit of blood and or some albumin to help with retention of fluid within the intravascular space. He would prefer not to get a transfusion at this time. He is advised follow-up with his primary care/commercial loan administrator in the next week or so. He should have his blood count rechecked to see if he is going lower still. He does take folate already. We will check his iron levels to see if they are inadequate. The patient is asking about paracentesis. He does have tenseness but not a lot of pain. It seems reasonable to do a paracentesis at this time for comfort. He is also slightly hypotensive relatively and that may be being affected by that as well. He is given some IV fluids initially prior to the paracentesis. We discussed the procedure and he has had it done 2 or 3 times previously so is familiar. He does give consent. Departure - Departure Disposition: 01 Home, Self Care Clinical Impression: Ascites, Liver disease, Anemia Condition: Stable Record reviewed to determine appropriate education?: Yes Prescriptions: Ferrous Gluconate 324 mg PO DAILY #30 tablet Comments: We did drain off approximately 2200 mL of fluid. Your blood test are showing some anemia. I did test for your iron levels and they are low. Continue with your current usual medications and add an iron supplement as well daily. Follow-up with your commercial loan administrator and primary care next week for follow-up. They will likely want to recheck your blood count in a week or so to make sure is not going lower still. Continue usual medications otherwise. Discharge Date/Time: 12/01/22 13:24
[2022-12-01] MEDS ORDERED: SODIUM CHLORIDE 0.9% 1,000 ML IV STA (10:46)
[2022-12-01 11:06] LABS: BASOPHILS % (AUTO) 0.4 %; EOSINOPHILS # (AUTO) 0.3 10^3/uL (0.0-0.7); EOSINOPHILS % (AUTO) 6.9 %; HCT - HEMATOCRIT 20.6 % (42.0-52.0); HGB - HEMOGLOBIN 7.1 g/dL (14.0-18.0); LYMPHOCYTES # (AUTO) 1.2 10^3/uL (1.5-3.5); LYMPHOCYTES % (AUTO) 24.3 %; MEAN CORPUSCULAR HEMOGLOBIN 33.3 pg (27.0-31.0); MEAN CORPUSCULAR HGB CONC 34.5 g/dL (32.0-36.0); MEAN CORPUSCULAR VOLUME 96.7 fL (80.0-94.0); MEAN PLATELET VOLUME 9.7 fL (7.4-11.4); MONOCYTES # (AUTO) 0.6 10^3/uL (0.0-1.0); MONOCYTES % (AUTO) 12.5 %; NEUTROPHILS # (AUTO) 2.7 10^3/uL (1.5-6.6); NEUTROPHILS % (AUTO) 55.7 %; PLT - PLATELET COUNT 108 10^3/uL (130-450); RED BLOOD COUNT 2.13 10^6/uL (4.70-6.10); RED CELL DISTRIBUTION WIDTH 15.8 % (12.0-15.0); WHITE BLOOD COUNT 4.8 x10^3/uL (4.8-10.8)
[2022-12-01 11:18] LABS: ALBUMIN/GLOBULIN RATIO 0.6 (1.0-2.2); BILIRUBIN,TOTAL 1.4 mg/dL (0.2-1.0); CREATININE 1.9 mg/dL (0.6-1.2); POTASSIUM 4.2 mmol/L (3.5-5.0); TOTAL PROTEIN 7.8 g/dL (6.7-8.2)
[2022-12-01 12:15] LABS: % IRON SATURATION 13 % (20-50); IRON 34 ug/dL (45-182); TOTAL IRON BINDING CAPACITY 267 ug/dL (250-450); TRANSFERRIN 191 mg/dL (180-329)
[2022-12-01 13:19] VITALS: BP 107/69
== END 2022-12-01 13:24 | disposition home or self-care (01) ==
LOC: ED 09:52
DX: K76.9 Liver disease, unspecified (principal); D64.9 Anemia, unspecified; R18.8 Other ascites
CPT/HCPCS: 36415; 49082; 80053; 83540; 83690; 83735; 84466; 85025; 87070; 87205; 99284

== ENCOUNTER 2022-12-11 18:00 | Emergency (ER) | payer MEDICAID ==
[2022-12-11 18:46] LABS: BASOPHILS % (AUTO) 0.6 %; EOSINOPHILS # (AUTO) 0.2 10^3/uL (0.0-0.7); EOSINOPHILS % (AUTO) 3.4 %; LYMPHOCYTES # (AUTO) 1.1 10^3/uL (1.5-3.5); LYMPHOCYTES % (AUTO) 21.4 %; MEAN CORPUSCULAR HEMOGLOBIN 32.5 pg (27.0-31.0); MEAN CORPUSCULAR HGB CONC 33.3 g/dL (32.0-36.0); MEAN CORPUSCULAR VOLUME 97.5 fL (80.0-94.0); MEAN PLATELET VOLUME 10.2 fL (7.4-11.4); MONOCYTES # (AUTO) 0.4 10^3/uL (0.0-1.0); MONOCYTES % (AUTO) 7.4 %; NEUTROPHILS # (AUTO) 3.6 10^3/uL (1.5-6.6); PLT - PLATELET COUNT 123 10^3/uL (130-450); RED BLOOD COUNT 1.97 10^6/uL (4.70-6.10); RED CELL DISTRIBUTION WIDTH 16.4 % (12.0-15.0); WHITE BLOOD COUNT 5.3 x10^3/uL (4.8-10.8)
[2022-12-11 18:49] LABS: HGB - HEMOGLOBIN 6.4 g/dL (14.0-18.0)
[2022-12-11 18:50] LABS: HCT - HEMATOCRIT 19.2 % (42.0-52.0)
[2022-12-11 18:56] LABS: ALBUMIN 2.6 g/dL (3.2-5.5); ALBUMIN/GLOBULIN RATIO 0.6 (1.0-2.2); BILIRUBIN,TOTAL 1.9 mg/dL (0.2-1.0); CALCIUM 7.7 mg/dL (8.5-10.3); CREATININE 1.8 mg/dL (0.6-1.2); ETOH - ETHANOL 293.3 mg/dL; TOTAL PROTEIN 7.1 g/dL (6.7-8.2)
[2022-12-11 19:07] LABS: INR 1.4 (0.8-1.2); PT - PROTHROMBIN TIME 14.8 secs (9.9-12.6)
--- NOTE | 2022-12-11 19:34 | ED Physician Documentation ---
PD HPI ABD PAIN - Stated complaint Stated Complaint: BLOATING - Chief complaint Chief Complaint: Abd Pain - History obtained from History obtained from: Patient - Additional information Additional information: 42-year-old gentleman with alcoholic liver disease presents requesting paracentesis. States his last alcoholic drink was 2 days ago. He had upper endoscopy that per him was negative about a year ago and Linda Zabala. He is not feeling short of breath with it and it is not painful, just uncomfortable. PD PAST MEDICAL HISTORY - Past Medical History Cardiovascular: None Respiratory: None GI: Cirrhosis - Past Surgical History General: Appendectomy - Present Medications Home Medications: Ambulatory Orders Medication Instructions Recorded Confirmed Furosemide [Lasix] 20 mg PO DAILY #14 tablet 01/31/22 03/03/22 Spironolactone [Aldactone] 25 mg PO DAILY 03/03/22 03/03/22 Lactulose [Enulose] 10 gm PO DAILY #30 packet 03/05/22 Magnesium Sulfate 100 mg PO DAILY #30 cap 03/05/22 Potassium Chloride [Micro-K] 10 meq PO DAILY #30 cap 03/05/22 Spironolactone [Aldactone] 37.5 mg PO DAILY #45 tab 03/05/22 Thiamine HCl [Vitamin B-1] 100 mg PO DAILY #30 tablet 03/05/22 Ferrous Gluconate 324 mg PO DAILY #30 tablet 12/01/22 - Allergies Allergies/Adverse Reactions: Allergies Allergy/AdvReac Type Severity Reaction Status Date / Time Penicillins Allergy Unknown Verified 12/11/22 18:04 - Social History Does the pt smoke?: No Smoking Status: Never smoker PD ED PE NORMAL - Vitals Vital signs reviewed: Yes - General General: Alert and oriented X 3, No acute distress - Abdomen Abdomen: Other (Ascitic nontender abdomen) - Derm Derm: No rash - Neuro Neuro: Alert and oriented X 3, Normal speech Results - Vitals Vitals: Vital Signs - 24 hr 12/11/22 18:04 Temperature 36.5 C Heart Rate 100 Respiratory 16 Rate Blood Pressure 111/70 O2 Saturation 100 Oxygen O2 Source Room air - Labs Labs: Laboratory Tests 12/11/22 12/11/22 12/11/22 18:30 18:30 18:30 WBC 5.3 RBC 1.97 L Hgb 6.4 L* Hct 19.2 L* MCV 97.5 H MCH 32.5 H MCHC 33.3 RDW 16.4 H Plt Count 123 L MPV 10.2 Neut # (Auto) 3.6 Lymph # (Auto) 1.1 L [place] # (Auto) 0.4 Eos # (Auto) 0.2 Baso # (Auto) 0.0 Absolute Nucleated RBC 0.00 Nucleated RBC % 0.0 PT 14.8 H INR 1.4 H Sodium 127 L Potassium 5.0 Chloride 98 L Carbon Dioxide 21 Anion Gap 8.0 BUN 21 H Creatinine 1.8 H Estimated GFR (MDRD) 42 L Glucose 138 H Calcium 7.7 L Total Bilirubin 1.9 H AST 87 H ALT 15 Alkaline Phosphatase 139 H Total Protein 7.1 Albumin 2.6 L Globulin 4.5 H Albumin/Globulin Ratio 0.6 L Ethyl Alcohol 293.3 Procedures - Paracentesis - Major Preparation: Consent obtained, Ultrasound guidance, Sterile prep and drape, Local anesthesia Location: LLQ Technique: Catheter over needle Fluid: Clear, Volume - enter cc (4 liters) Aftercare: No complications PD Medical Decision Making - ED course ED course: 42-year-old gentleman who has ascites and here wanting it drained. Note made that he is gradually decreasing hemoglobin. He denies dark or tarry or bloody stools. I offered transfusion today which was declined. Lab work notable for slow worsening blood counts, 6.4 hemoglobin today, was 7.1 about 10 days ago. INR elevated at 1.4. Bilirubin elevated 1.9 with concern for mild hepatorenal syndrome. Blood alcohol 293, I even after confronted with this level he declined drinking in the last 2 days. He declined admission nor blood transfusion after further conversation. He despite the blood alcohol level he is not clinically intoxicated. Departure - Departure Disposition: 01 Home, Self Care Clinical Impression: End stage liver disease, Ascites, Alcohol abuse Condition: Stable Record reviewed to determine appropriate education?: Yes Instructions: ED Ascites Follow-Up: [facility] [Provider Group] Comments: You were seen today mostly for the abdominal swelling and we drained 4 L. Your work-up was notable for hemoglobin of 6.4, about 10 days ago it was 7.3. You have declined blood transfusion. Your blood alcohol was 293. Follow-up with your primary care physician for repeat labs later this week and further evaluation and treatment. Potentially referral for alcohol resources and hepatology. Continue current medications. You can follow-up with the local clinic on this form or potentially: [facility] in [place], [place] Address: [id number] [place] [address] [place], [place] [id number]
[2022-12-11] MEDS: LIDOCAINE 1%-EPI 1:100000 20 ML MDV SUBQ STA (19:45)
[2022-12-11 20:19] VITALS: BP 98/64
== END 2022-12-11 20:18 | disposition home or self-care (01) ==
LOC: ED 18:00
DX: K72.10 Chronic hepatic failure without coma (principal); K70.31 Alcoholic cirrhosis of liver with ascites; F10.10 Alcohol abuse, uncomplicated; Y90.8 Blood alcohol level of 240 mg/100 ml or more; R79.1 Abnormal coagulation profile; E80.7 Disorder of bilirubin metabolism, unspecified
CPT/HCPCS: 36415; 49082; 80053; 80320; 85025; 85610; 99284

== ENCOUNTER 2022-12-18 14:04 | Observation (INO) | payer MEDICAID ==
--- NOTE | 2022-12-18 14:21 | ED Physician Documentation ---
History of Present Illness - Stated complaint Stated Complaint: LETHARGIC - Additonal information Additional information: 42-year-old male with a hx of etoh cirrhosis presents emergency department hoping that today he can receive red blood cell infusion. He was seen here on 11 December for ascites. While here in the emergency department he did have a paracentesis which drained 4 L. However he had a critically low hemoglobin of 6.4 but at that time the patient could not stay for transfusion and declined. Over the last week he reports that his ascites has remained at bay and he continues to be on his diuretics. He reports occasionally having bright red blood. He still does continue to drink, last consuming 2 beers yesterday. Review of Systems Constitutional: reports: Fatigue. denies: Fever, Chills Ears: reports: Reviewed and negative Cardiac: reports: Reviewed and negative Respiratory: reports: Reviewed and negative GI: reports: Abdominal Swelling (Chronic baseline ascites unchanged), Bloody / black stool. denies: Abdominal Pain : reports: Reviewed and negative Skin: reports: Reviewed and negative PD PAST MEDICAL HISTORY - Past Medical History Cardiovascular: None Respiratory: None GI: Cirrhosis - Past Surgical History General: Appendectomy - Present Medications Home Medications: Ambulatory Orders Medication Instructions Recorded Confirmed Furosemide [Lasix] 20 mg PO DAILY #14 tablet 01/31/22 03/03/22 Spironolactone [Aldactone] 25 mg PO DAILY 03/03/22 03/03/22 Lactulose [Enulose] 10 gm PO DAILY #30 packet 03/05/22 Magnesium Sulfate 100 mg PO DAILY #30 cap 03/05/22 Potassium Chloride [Micro-K] 10 meq PO DAILY #30 cap 03/05/22 Spironolactone [Aldactone] 37.5 mg PO DAILY #45 tab 03/05/22 Thiamine HCl [Vitamin B-1] 100 mg PO DAILY #30 tablet 03/05/22 Ferrous Gluconate 324 mg PO DAILY #30 tablet 12/01/22 - Allergies Allergies/Adverse Reactions: Allergies Allergy/AdvReac Type Severity Reaction Status Date / Time Penicillins Allergy Unknown Verified 12/18/22 14:19 - Social History Does the pt smoke?: No Smoking Status: Never smoker PD ED PE NORMAL - General General: Alert and oriented X 3, No acute distress - Cardiac Cardiac: RRR, No murmur - Respiratory Respiratory: No respiratory distress, Clear bilaterally - Abdomen Abdomen: Normal bowel sounds, Soft, Non tender (Distended abdomen though not tense. Mild palpable ascites. Patient reports is unchanged over the last week) - Rectal Rectal: Other (Chaperoned rectal exam revealed black appearing melena) - Back Back: No CVA TTP - Derm Derm: Normal color, Warm and dry - Extremities Extremities: No deformity - Neuro Neuro: Alert and oriented X 3, plastic surgeon 2-12 intact Eye Opening: Spontaneous Motor: Obeys Commands Verbal: Oriented GCS Score: 15 Results - Vitals Vitals: Vital Signs - 24 hr 12/18/22 14:12 Temperature 36.8 C Heart Rate 100 Respiratory 16 Rate Blood Pressure 98/62 O2 Saturation 99 Oxygen O2 Source Room air - Labs Labs: Microbiology 12/18/22 14:37 Occult Blood - Final Stool Laboratory Tests 12/18/22 12/18/22 12/18/22 14:37 14:37 14:37 WBC 5.3 RBC 1.90 L Hgb 6.4 L* Hct 18.0 L* MCV 94.7 H MCH 33.7 H MCHC 35.6 RDW 18.2 H Plt Count 112 L MPV 9.5 Neut # (Auto) 2.7 Lymph # (Auto) 1.6 [place] # (Auto) 0.8 Eos # (Auto) 0.2 Baso # (Auto) 0.0 Absolute Nucleated RBC 0.00 Nucleated RBC % 0.0 PT INR Sodium 130 L Potassium 4.5 Chloride 97 L Carbon Dioxide 25 Anion Gap 8.0 BUN 23 H Creatinine 2.6 H Estimated GFR (MDRD) 27 L Glucose 149 H Calcium 8.2 L Total Bilirubin 1.6 H AST 74 H ALT 16 Alkaline Phosphatase 115 Total Protein 7.2 Albumin 2.5 L Globulin 4.7 H Albumin/Globulin Ratio 0.5 L Lipase 58 H Blood Type O POSITIVE Blood Type Recheck Antibody Screen NEGATIVE Crossmatch IS Only See Detail 12/18/22 12/18/22 14:37 15:03 WBC RBC Hgb Hct MCV MCH MCHC RDW Plt Count MPV Neut # (Auto) Lymph # (Auto) [place] # (Auto) Eos # (Auto) Baso # (Auto) Absolute Nucleated RBC Nucleated RBC % PT 16.1 H INR 1.5 H Sodium Potassium Chloride Carbon Dioxide Anion Gap BUN Creatinine Estimated GFR (MDRD) Glucose Calcium Total Bilirubin AST ALT Alkaline Phosphatase Total Protein Albumin Globulin Albumin/Globulin Ratio Lipase Blood Type Blood Type Recheck O POSITIVE Antibody Screen Crossmatch IS Only PD Medical Decision Making - ED course Complexity details: reviewed results, re-evaluated patient, d/w patient ED course: 42-year-old male with a known history of alcoholic cirrhosis who continues to endorse drinking presents to the emergency department requesting packed red blood cell transfusion. Seen 1 week ago and found to have hemoglobin of 6.4. At that time of the ED visit he did have a 4 L paracentesis completed. The ascites has not reaccumulated and he remains compliant with his diuretics. He states that intermittently he has bright red stools. However when I did a rectal exam I did find melena that was guaiac negative. Patient is on iron which likely accounts for the stool coloration. Patient is alert does not appear encephalopathic. He does have some soft blood pressures in the 90s over 60s. I did obtain a CBC, electrolytes, PT, INR. Per my interpretation I do have findings that show significant anemia with hemoglobin of 6.4 and a crit of 18. INR is 1.5. Sodium mildly low at 130. BUN and creatinine are 23 and 2.6. This is markedly higher than they were 1 week ago. He does have an elevated T. bili of 1.6 and an AST of 74. Normal ALT. This is consistent with alcoholic cirrhosis. His MELD score today is calculated at 30 giving him a 30% 90-day mortality. Patient does have some palpable ascites though it is not tense. He is nonperitoneal. No leukocytosis. No clinical indication today for paracentesis as it would be neither diagnostic nor therapeutic. With the recent change in BUN and creatinine I query whether he is developing hepatorenal failure. In the interim I have ordered a 2 unit PRBC infusion. However I believe the patient would benefit from a short observation admission for further evaluation and management of his electrolytes and cirrhosis. I have spoken with the patient who agrees to come in to the emergency department for further management of this. Dr. Moya graciously agrees to admit under observation status. Given that the stool guaiac was negative and the hemoglobin was unchanged over the next week I do not anticipate that this patient would need an EGD or colonoscopy during this admission. I have reached out to [facility] requesting their most recent EGD results. Departure - Departure Disposition: ED Place in Observation Clinical Impression: GEORGE (acute kidney injury) Alcoholic cirrhosis Qualifiers: Ascites presence: with ascites Qualified Code(s): K70.31 - Alcoholic cirrhosis of liver with ascites Anemia Qualifiers: Anemia type: unspecified type Qualified Code(s): D64.9 - Anemia, unspecified Condition: Serious
[2022-12-18 14:50] LABS: BASOPHILS % (AUTO) 0.6 %; EOSINOPHILS # (AUTO) 0.2 10^3/uL (0.0-0.7); EOSINOPHILS % (AUTO) 3.8 %; LYMPHOCYTES # (AUTO) 1.6 10^3/uL (1.5-3.5); LYMPHOCYTES % (AUTO) 29.5 %; MEAN CORPUSCULAR HEMOGLOBIN 33.7 pg (27.0-31.0); MEAN CORPUSCULAR HGB CONC 35.6 g/dL (32.0-36.0); MEAN CORPUSCULAR VOLUME 94.7 fL (80.0-94.0); MEAN PLATELET VOLUME 9.5 fL (7.4-11.4); MONOCYTES # (AUTO) 0.8 10^3/uL (0.0-1.0); MONOCYTES % (AUTO) 14.6 %; NEUTROPHILS # (AUTO) 2.7 10^3/uL (1.5-6.6); NEUTROPHILS % (AUTO) 51.1 %; PLT - PLATELET COUNT 112 10^3/uL (130-450); RED CELL DISTRIBUTION WIDTH 18.2 % (12.0-15.0); WHITE BLOOD COUNT 5.3 x10^3/uL (4.8-10.8)
[2022-12-18 14:54] LABS: HGB - HEMOGLOBIN 6.4 g/dL (14.0-18.0)
[2022-12-18 15:00] LABS: INR 1.5 (0.8-1.2); PT - PROTHROMBIN TIME 16.1 secs (9.9-12.6)
[2022-12-18 15:09] LABS: ALBUMIN 2.5 g/dL (3.2-5.5); ALBUMIN/GLOBULIN RATIO 0.5 (1.0-2.2); BILIRUBIN,TOTAL 1.6 mg/dL (0.2-1.0); CALCIUM 8.2 mg/dL (8.5-10.3); CREATININE 2.6 mg/dL (0.6-1.2); POTASSIUM 4.5 mmol/L (3.5-5.0); TOTAL PROTEIN 7.2 g/dL (6.7-8.2)
[2022-12-18] MEDS ORDERED: SODIUM CHLORIDE FLUSH 0.9% 10 ML SYRINGE IVP PRN (16:16)
[2022-12-18] MEDS ORDERED: ONDANSETRON 4 MG/2 ML VIAL IVP PRN (16:24)
[2022-12-18] MEDS ORDERED: ONDANSETRON ODT 4 MG TABLET TL PRN (16:24)
[2022-12-18] MEDS ORDERED: oxyCODONE 5 MG TABLET PO PRN (16:31)
[2022-12-18] MEDS ORDERED: traMADol 50 MG TABLET PO PRN (16:32)
[2022-12-18] MEDS ORDERED: SODIUM CHLORIDE 0.9% 500 ML IV ONE (17:54)
[2022-12-18] MEDS: SODIUM CHLORIDE 0.9% 1,000 ML IV SCH ×2 (18:16→23:31)
[2022-12-18] MEDS: SODIUM CHLORIDE FLUSH 0.9% 10 ML SYRINGE IVP SCH (18:17)
--- NOTE | 2022-12-18 20:10 | HISTORY & PHYSICAL EXAMINATION ---
Chief Complaint - Chief Complaint Chief Complaint: Severe fatigue and anemia History of Present Illness - Admitted From Admitted From:: home via POV - History Obtained From Records Reviewed: [facility] History obtained from: patient, his mom and sister Exam Limitations: none - History of Present Illness HPI Comment/Other: This is a 42-year-old male with a history of chronic alcohol abuse and cirrhosis. He was last admitted in February 2022 for management of marked hyponatremia and alcoholic cirrhosis with ascites needing a paracentesis. He is seen in our emergency room on a semiregular basis for problems with alcohol abuse. He is lost about 30 pounds in the last year. He swears he is eating enough but he prefers to eat fruit. This is in spite of increasing ascites and increasing belly protuberance. He still drinks about a sixpack a day. When he was drinking the most, a year ago, it was about 3 bottles of wine a day plus beer. Now he just drinks the beer. He has been told to stop drinking. When I asked him why he is still drinking, he says "habit". He has not gone through withdrawal. No seizures, delirium. He has been seen at [facility] and sees a registration coordinator there. He cannot remember her name. He has been put on lactulose, carvedilol, proton pump inh ibitor, Lasix and spironolactone. As far as he is aware, he does not have esophageal varices. He has had an occasional paracentesis in the emergency room here over the last year and he was last seen December 11 for that. But he also had one a week before. With the December 11 encounter, he had anemia of 6.4 g of hemoglobin. He did not want to stay for a transfusion. He does report that he has intermittent bright red blood per rectum for a very long time. His ascites is about the same. Is not getting any worse. He has been getting so tired lately. He has not been able to work in several months, maybe a year because he just does not have any energy. In the last 3 weeks he has been basically in bed. He tried to go to work last week and he could not make it. He has been having daily bloody noses in the last week. So fatigued and slightly nauseated that he decided to come back to get that blood transfusion to see if it make him feel better. In addition to the liver failure, we are noticing that he is going into hepatorenal failure. BUN has usually been normal. January 07 was 21, today is 23. His usual creatinine is 0.6 with the last one March 2022. In November he was 1.9, December 11 he was 1.8 and today he is 2.6. The emergency room provider and I discussed his case. Calculated MELD score was 30. We are worried that the hepatorenal failure may continue to worsen. I will be placing the patient in observation status. I am going to transfuse him, give him a liter of fluid and see if his creatinine improves. History - Past Medical History Cardiovascular: reports: None Respiratory: reports: None Neuro: reports: None Endocrine/Autoimmune: reports: None GI: reports: Cirrhosis : reports: None HEENT: reports: Other (Allergic rhinitis) Psych: reports: Depression Musculoskeletal: reports: None Derm: reports: None MRSA Hx?: No - Past Surgical History General: reports: Appendectomy - Family & Social History Family History: Mother: Alive and Well, Father: Alive and Well Family History Comment/Other: Mom is in her 70s and has diet-controlled diabetes and Graves' disease. Dad is in his 70s and has Graves' disease, hypertension, diabetes, coronary artery disease. He has 2 sisters and 1 brother. 2 sisters have thyroid disease. No child Living arrangement: At home Living Situation: With family Social History Notes: He lives with his mother. He drives a car. 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 He quit smoking 2018. He drinks a sixpack of beer or more a day. Other than cannabis he denies fentanyl, meth, heroin, cocaine use - Substance History Use: Uses substance without health or social issues: NONE Meds/Allgy - Home Medications Home Medications: Ambulatory Orders Medication Instructions Recorded Confirmed Furosemide [Lasix] 20 mg PO DAILY #14 tablet 01/31/22 03/03/22 Spironolactone [Aldactone] 25 mg PO DAILY 03/03/22 03/03/22 Lactulose [Enulose] 10 gm PO DAILY #30 packet 03/05/22 Magnesium Sulfate 100 mg PO DAILY #30 cap 03/05/22 Potassium Chloride [Micro-K] 10 meq PO DAILY #30 cap 09/25/22 Spironolactone [Aldactone] 37.5 mg PO DAILY #45 tab 03/05/22 Thiamine HCl [Vitamin B-1] 100 mg PO DAILY #30 tablet 03/05/22 Ferrous Gluconate 324 mg PO DAILY #30 tablet 12/01/22 - Allergies Allergies/Adverse Reactions: Allergies Allergy/AdvReac Type Severity Reaction Status Date / Time Penicillins Allergy Unknown Verified 12/18/22 14:19 Prior Level of Functionality: He can usually get up out of bed to bathe himself, feed himself, drive a car. In the last 3 weeks he is not bedbound but he is so fatigued that he can barely get up and walk. He cannot stand for very long and hence he has not been able to work. Exam - Vital Signs Reviewed Vital Signs: Yes Vital Signs: Vital Signs x48h Temp Pulse Pulse Resp BP BP Pulse Ox 12/18/22 18:54 77 90/47 L 12/18/22 17:42 36.5 C 78 16 87/51 L 96 12/18/22 17:26 36.4 C L 79 16 98/57 L 100 12/18/22 17:23 36.4 C L 83 16 98/57 L 100 12/18/22 17:15 36.4 C L 79 16 98/57 L 100 12/18/22 16:57 75 18 92/54 L 99 12/18/22 14:12 36.8 C 100 16 98/62 99 - Physical Exam General Appearance: positive: No acute distress, Alert, Other (Quiet affect, emotionally withdrawn male who looks younger than stated age. Mom and sister at the bedside. Able to get up out of bed with his IV pole and walk to the bathroom and back) Eyes Bilateral: positive: PERRL ENT: positive: No signs of dehydration Neck: positive: No JVD. negative: Stiff neck Respiratory: positive: No respiratory distress. negative: Wheezes, Rales, Rhonchi Cardiovascular: positive: Regular rate & rhythm. negative: Tachycardia Abdomen: positive: Other (Distention of abdomen. Small fluid wave. No tenderness.). negative: Guarding, Rebound Skin: positive: Warm, Dry Extremities: positive: Full ROM, No pedal edema, Other (Significant loss of muscle mass in arms and legs) Neurologic/Psychiatric: positive: Oriented x3, CN's nml (2-12), Motor nml, Depressed mood/affect. negative: Slurred/abnml speech Conclusion/Plan - Problem List (1) Anemia Conclusion/Plan: He says that this is the first transfusion he is ever going to need. He feels like he does not have an ulcer, and does not have a history of esophageal varices. He has bleeding from his nose, bleeding from his rectum. His GI specialist knows that he has iron deficiency anemia. So he takes iron for that. Plan: Observation status Transfusion of 2 units of packed cells Follow-up with gastroenterology after discharge I am not going to order anemia panel. Discharge will be tomorrow if BUN and creatinine come down, I had originally ordered a clear liquid diet wondering if this patient needed to go to the OR for an EGD. He appears relatively stable and not acutely bleeding. As such I will advance diet to regular low-salt diet Qualifiers: Anemia type: iron deficiency Iron deficiency anemia type: chronic blood loss Qualified Code(s): D50.0 - Iron deficiency anemia secondary to blood loss (chronic) (2) Acute renal failure Conclusion/Plan: This patient is on Lasix, Aldactone, has poor p.o. intake, is had 2 paracentesis 2 weeks apart. I think he is intravascularly depleted and his anemia is not h elping. That is the reason he has acute renal failure. Plan: I have asked him to stop the Lasix and only take Aldactone when he leaves Continue all his other medications. Follow-up with gastroenterology to make sure they know the extent of his renal failure. I would love to send a note to his registration coordinator. But the patient cannot remember the doctor's name. [place] see a clinic in [facility] for [facility]. But cannot remember that doctor's name either. Qualifiers: Acute renal failure type: unspecified Qualified Code(s): N17.9 - Acute kidney failure, unspecified (3) End stage liver disease Conclusion/Plan: Calculated MELD score is 30. I explained to he, his sister and his mother what that means. He tells me that he does not want to . He cannot believe it is as serious as it is. He shrugs his shoulders and says that maybe he will stop drinking. His mother asked if he would be a candidate for liver transplant and I explained that he needs to be clean and sober for a minimum of 6 months before they start evaluation. At discharge I would resume all of his usual medications except for the Lasix. If he is intravascularly depleted I would like him to be followed up by his registration coordinator in the next week or 2 to repeat the BMP. We are a critical access hospital. We can maximize his medical therapy but our use of medication would have been the same medications he is already on. - Lab Results Lab results reviewed: Yes Eligio Bones: 12/18/22 14:37 12/18/22 14:37 Core Measures - Anticipated LOS I expect patient to be DC'd or transferred within 96 hours.: Yes - DVT/VTE - Prophylaxis VTE/DVT Device ordered at admit?: Yes VTE/DVT Prophylaxis med ordered at admit?: No Not Ordered - Medical Reason: Contraindicated
[2022-12-19 00:46] LABS: HCT - HEMATOCRIT 23.9 % (42.0-52.0); HGB - HEMOGLOBIN 8.5 g/dL (14.0-18.0)
[2022-12-19] MEDS: SODIUM CHLORIDE FLUSH 0.9% 10 ML SYRINGE IVP SCH ×2 (01:38→12:44)
[2022-12-19 05:19] LABS: BASOPHILS % (AUTO) 0.6 %; EOSINOPHILS # (AUTO) 0.2 10^3/uL (0.0-0.7); EOSINOPHILS % (AUTO) 3.9 %; HCT - HEMATOCRIT 23.7 % (42.0-52.0); HGB - HEMOGLOBIN 8.5 g/dL (14.0-18.0); LYMPHOCYTES # (AUTO) 1.1 10^3/uL (1.5-3.5); LYMPHOCYTES % (AUTO) 21.3 %; MEAN CORPUSCULAR HEMOGLOBIN 32.4 pg (27.0-31.0); MEAN CORPUSCULAR HGB CONC 35.9 g/dL (32.0-36.0); MEAN CORPUSCULAR VOLUME 90.5 fL (80.0-94.0); MEAN PLATELET VOLUME 9.6 fL (7.4-11.4); MONOCYTES # (AUTO) 0.8 10^3/uL (0.0-1.0); MONOCYTES % (AUTO) 15.2 %; NEUTROPHILS % (AUTO) 58.6 %; PLT - PLATELET COUNT 96 10^3/uL (130-450); RED BLOOD COUNT 2.62 10^6/uL (4.70-6.10); RED CELL DISTRIBUTION WIDTH 17.3 % (12.0-15.0); WHITE BLOOD COUNT 5.1 x10^3/uL (4.8-10.8)
[2022-12-19 05:34] LABS: ALBUMIN 2.3 g/dL (3.2-5.5); ALBUMIN/GLOBULIN RATIO 0.5 (1.0-2.2); BILIRUBIN,TOTAL 3.8 mg/dL (0.2-1.0); POTASSIUM 4.7 mmol/L (3.5-5.0); TOTAL PROTEIN 6.6 g/dL (6.7-8.2)
--- NOTE | 2022-12-19 10:35 | PHARMACY PROGRESS NOTE ---
- Best Possible Medication History Admit Date and Time: 12/18/22 1616 Processed by: Pharmacy Medication History completed: Yes Secondary Source(s): Prescription bottles, Insurance records As the person ultimately responsible for medication therapy, providers are able to order a medication from an existing home medication list in [facility] via the "Reconcile Routine" prior to Confirmation of that medication by academic support director. Such practice is discouraged except when the physician, in their clinical judgment, deems that a medical need exists for a medication without regard to previous use.
[2022-12-19] MEDS: SODIUM CHLORIDE 0.9% 1,000 ML IV SCH (11:47)
[2022-12-19 12:06] VITALS: BP 100/54
--- NOTE | 2022-12-19 12:07 | Discharge Plan ---
Discharge Plan Problem Reviewed?: Yes Disposition: Home, Self Care Condition: Fair Prescriptions: Furosemide [Lasix] 40 mg PO MOWEFR #15 tab Diet: Low Sodium Activity Restrictions: Activity as Tolerated Shower Restrictions: No Driving Restrictions: No (No driving a vehicle if you are under the influence of alcohol) Instruction Topics: Alcoholism Health Concerns: You were hospitalized to manage your weakness which we found was caused by severe anemia. You needed blood transfusion. You are being discharged home today with a stable hemoglobin level. Please resume all your usual medications and management however, please take the Lasix only on Sunday, it is over dehydrating you. The other medical provider reviewed with you that your alcohol intake is excessive and is affecting your liver. The criteria we used to estimate prognosis shows that your alcohol intake has already caused significant liver failure, which could kill you. To be a liver transplant candidate you must be sober and off of alcohol for 6 months minimum. You should be seen by your Gastroenterology specialist. STOP DRINKING ALCOHOL. Plan of Treatment: As above. Care Goals: Improvement in symptoms and stabilization are the goals. Assessment: These instructions are provided for you and family members as a reminder. Additional Instructions or Follow Up instructions: If you have new or worsening symptoms, call your Primary Care Provider, or your Consumer Loan Manager for advice, or come to the ER. No Smoking: If you smoke, Please STOP! Call for help.
--- NOTE | 2022-12-19 12:17 | DISCHARGE SUMMARY ---
Discharge Summary Admit Date: 12/18/22 Discharge Date: 12/19/22 Discharging Provider: Dr Samia Johnson Primary Care Provider: [facility] on [place] Condition at Discharge: Fair Discharge Disposition: 01 Home, Self Care - HPI History of Present Illness: This is a 42-year-old male with a history of chronic alcohol abuse and cirrhosis. He was last admitted in February 2022 for management of marked hyponatremia and alcoholic cirrhosis with ascites needing a paracentesis. He is seen in our emergency room on a semiregular basis for problems with alcohol abuse. He is lost about 30 pounds in the last year. He swears he is eating enough but he prefers to eat fruit. This is in spite of increasing ascites and increasing belly protuberance. He still drinks about a sixpack a day. When he was drinking the most, a year ago, it was about 3 bottles of wine a day plus beer. Now he just drinks the beer. He has been told to stop drinking. When I asked him why he is still drinking, he says "habit". He has not gone through withdrawal. No seizures, delirium. He has been seen at [facility], and sees a retort engineer there. He cannot remember her name. He has been put on lactulose, carvedilol, proton pump inh ibitor, Lasix and spironolactone. As far as he is aware, he does not have esophageal varices. He has had an occasional paracentesis in the emergency room here over the last year and he was last seen December 11 for that. But he also had one a week before. With the December 11 encounter, he had anemia of 6.4 g of hemoglobin. He did not want to stay for a transfusion. He does report that he has intermittent bright red blood per rectum for a very long time. His ascites is about the same. Is not getting any worse. He has been getting so tired lately. He has not been able to work in several months, maybe a year because he just does not have any energy. In the last 3 weeks he has been basically in bed. He tried to go to work last week and he could not make it. He has been having daily bloody noses in the last week. So fatigued and slightly nauseated that he decided to come back to get that blood transfusion to see if it make him feel better. In addition to the liver failure, we are noticing that he is going into hepatorenal failure. BUN has usually been normal. January 07 was 21, today is 23. His usual creatinine is 0.6 with the last one March 2022. In November he was 1.9, December 11 he was 1.8 and today he is 2.6. The emergency room provider and I discussed his case. Calculated MELD score was 30. We are worried that the hepatorenal failure may continue to worsen. I will be placing the patient in observation status. I am going to transfuse him, give him a liter of fluid and see if his creatinine improves. - HOSPITAL COURSE Hospital Course: (1) Anemia - D50.0 - Iron deficiency anemia secondary to blood loss (chronic) He was placed inj Observation status and ordered to get transfusion of 2 units of packed cells. This his hemoglobin of 6.8 alan to 8.5 and remained stable at 8.5. He was not orthostatic. He was advised to resume his oral iron supplement. He was discharged the following day. He was advised to have follow-up with gastroenterology after discharge. (2) Acute renal failure - N17.9 - Acute kidney failure, unspecified This patient was on Lasix and Aldactone, had poor p.o. intake, is had 2 paracenteses that were 2 weeks apart. He was intravascularly depleted (and his anemia is not helping that. We felt these were the causes of his acute renal catracho lure. He got the blood transfusions (as above). He did not get Aldactone or Lasix for a day. After discharge, he was advised to resume all his medicines except to change the Lasix to Sunday, Sunday and Fridays only. (3) End stage liver disease Calculated MELD score is 30. We explained to the patient, his sister, and his mother at bedside what that means. He cannot believe it is as serious as it is. He shrugs his shoulders and says that maybe he will stop drinking. He was seen by social work and given resources if he decides to quit alcohol use. His mother asked if he would be a candidate for liver transplant and it was explained that he needs to be clean and sober for a minimum of 6 months before they start evaluation. He is icteric and AST > ALT. He did not go through alcohol withdrawal while here (for one day). He is on good management with Lactulose and Spironolactone. We wanted to send a discharge summary to his Material Clerk. But the patient could not remember that doctor's name. He does not see any primary care provider here on [facility], but does see a clinic on [facility] with [facility]. But he could not remember that doctor's name either. (4) Alcohol abuse As per Hx. He was advised to stop drinking alcohol. - ALLERGIES Allergies/Adverse Reactions: Allergies Allergy/AdvReac Type Severity Reaction Status Date / Time Penicillins Allergy Unknown Verified 12/18/22 14:19 - MEDICATIONS Home Medications: Ambulatory Orders Medication Instructions Recorded Confirmed Ferrous Gluconate 324 mg PO DAILY #30 tablet 12/01/22 12/19/22 Carvedilol [Coreg] 6.25 mg PO BIDWM 12/19/22 12/19/22 Furosemide [Lasix] 40 mg PO DAILY 12/19/22 12/19/22 Furosemide [Lasix] 40 mg PO MOWEFR #15 tab 12/19/22 Lactulose [Enulose] 10 gm PO TID 12/19/22 12/19/22 Pantoprazole [Protonix] 40 mg PO QDAC 12/19/22 12/19/22 Spironolactone [Aldactone] 100 mg PO DAILY 12/19/22 12/19/22 - PHYSICAL EXAM AT DISCHARGE General Appearance: positive: No acute distress, Alert Eyes Bilateral: positive: Other (Icteris sclerae) ENT: positive: ENT inspection nml, No signs of dehydration Neck: positive: Nml inspection, No JVD Respiratory: positive: No respiratory distress, Breath sounds nml Cardiovascular: positive: Regular rate & rhythm, No murmur Abdomen: positive: Non-tender, Nml bowel sounds, No distention Skin: positive: Warm, Dry, Other (Icteric) Neurologic/Psychiatric: positive: Oriented x3, Motor nml, Other (No tremor or nystagmus) - LABS Result Diagrams: 12/19/22 05:15 12/19/22 05:15 - DIAGNOSTIC IMAGING Diagnostic Imaging Results: Final report reviewed - FOLLOW UP Follow Up: See PCP and Gastroenterology for a F/U visit. - TIME SPENT Time Spent in Discharge (Minutes): 30
[2022-12-19] MEDS ORDERED: LACTULOSE 10 GM /15 ML UDC PO SCH (14:00)
[2022-12-19] MEDS ORDERED: carvediloL 3.125 MG TABLET PO SCH (17:00)
[2022-12-20] MEDS ORDERED: PANTOPRAZOLE 40 MG TABLET PO SCH (07:00)
[2022-12-20] MEDS ORDERED: FERROUS GLUCONATE 324 MG TABLET PO SCH (08:00)
[2022-12-20] MEDS ORDERED: SPIRONOLACTONE 25 MG TABLET PO SCH (09:00)
[2022-12-20] MEDS ORDERED: FUROSEMIDE 20 MG TABLET PO SCH (09:00)
== END 2022-12-19 13:12 | disposition home or self-care (01) ==
LOC: ED 14:04 → MS2 16:16
PROVIDERS: ADMIT Specialist; ATTEND Internal Medicine
DX: D50.0 Iron deficiency anemia secondary to blood loss (chronic) (principal); K70.31 Alcoholic cirrhosis of liver with ascites; K92.1 Melena; N17.9 Acute kidney failure, unspecified; K72.10 Chronic hepatic failure without coma
CPT/HCPCS: 36415; 36430; 80053; 82140; 82272; 83690; 85014; 85018; 85025; 85610; 86850; 86900; 86901; 86920; 96360; 96361; 99284; 99285; G0378; P9016

== ENCOUNTER 2023-01-15 20:58 | Outpatient (CLI) | payer MEDICAID | END 2023-01-15 23:59 | disposition critical access hospital (66) | LOC: EMS 20:58 | DX: R56.9 Unspecified convulsions (principal); R42 Dizziness and giddiness; R11.10 Vomiting, unspecified; R00.0 Tachycardia, unspecified; R03.1 Nonspecific low blood-pressure reading | CPT/HCPCS: A0425; A0427; A0999 ==

== ENCOUNTER 2023-01-15 21:08 | Emergency (ER) | payer MEDICAID ==
[2023-01-15] MEDS ORDERED: SODIUM CHLORIDE 0.9% 1,000 ML IV STA ×2 (21:26)
[2023-01-15] MEDS ORDERED: PROMETHAZINE INJ 25 MG in SODIUM CHLORIDE 0.9% 50 ML IV STA (21:55)
[2023-01-15 22:01] LABS: PT - PROTHROMBIN TIME 20.6 secs (9.9-12.6)
--- NOTE | 2023-01-15 22:04 | ED Physician Documentation ---
History of Present Illness - Stated complaint Stated Complaint: SZ - Chief complaint Chief Complaint: Neuro - History obtained from History obtained from: Patient, Family, EMS - History of Present Illness Timing: Today Pain level max: 0 Pain level now: 0 - Additonal information Additional information: Patient is a 42-year-old male brought into the emergency department by EMS. He reportedly was at home today when he went to stand up, felt lightheaded, dizzy and had a syncopal event. There was reportedly shaking at that time. There was no postictal period. He has never had a seizure before. Has a long history of alcohol abuse. Has a history of liver cirrhosis. Does not have any history of varices that he is aware of. No headache, no neck or back pain. Review of Systems Constitutional: denies: Fever, Chills GI: reports: Nausea, Vomiting : denies: Dysuria Skin: denies: Rash Musculoskeletal: denies: Neck pain, Back pain Neurologic: denies: Focal weakness, Numbness, Confused, Altered mental status, Headache, Head injury PD PAST MEDICAL HISTORY - Past Medical History Past Medical History: Yes Cardiovascular: None Respiratory: None Neuro: None Endocrine/Autoimmune: None GI: Cirrhosis : None HEENT: Other (Allergic rhinitis) Psych: Depression Musculoskeletal: None Derm: None - Past Surgical History General: Appendectomy - Present Medications Home Medications: Ambulatory Orders Medication Instructions Recorded Confirmed Ferrous Gluconate 324 mg PO DAILY #30 tablet 12/01/22 12/19/22 Carvedilol [Coreg] 6.25 mg PO BIDWM 12/19/22 12/19/22 Furosemide [Lasix] 40 mg PO DAILY 12/19/22 12/19/22 Furosemide [Lasix] 40 mg PO MOWEFR #15 tab 12/19/22 Lactulose [Enulose] 10 gm PO TID 12/19/22 12/19/22 Pantoprazole [Protonix] 40 mg PO QDAC 12/19/22 12/19/22 Spironolactone [Aldactone] 100 mg PO DAILY 12/19/22 12/19/22 - Allergies Allergies/Adverse Reactions: Allergies Allergy/AdvReac Type Severity Reaction Status Date / Time Penicillins Allergy Unknown Verified 01/15/23 21:12 - Social History Does the pt smoke?: No Smoking Status: Former smoker PD ED PE NORMAL - Vitals Vital signs reviewed: Yes - General General: Alert and oriented X 3, No acute distress, Other (pale appearing.) - HEENT HEENT: Atraumatic, PERRL, Moist mucous membranes, Pharynx benign - Neck Neck: Supple, no meningeal sign, No bony TTP - Cardiac Cardiac: RRR, Strong equal pulses - Respiratory Respiratory: No respiratory distress, Clear bilaterally - Abdomen Abdomen: Soft, Non tender, Other (Mild distention, no tense ascites) - Back Back: No spinal TTP - Derm Derm: Warm and dry - Extremities Extremities: No calf tenderness / cord, Other (1+ bilateral lower extremity edema) - Neuro Neuro: Alert and oriented X 3, cheese cook 2-12 intact, No motor deficit, No sensory de ficit, Normal speech - Psych Psych: Normal mood, Normal affect - Free text exam Free text exam: No tongue biting. No urinary incontinence Results - Vitals Vitals: Vital Signs - 24 hr 01/15/23 21:12 Temperature 36.5 C Heart Rate 120 H Respiratory 18 Rate Blood Pressure 94/52 L O2 Saturation 100 Oxygen O2 Source Room air - Labs Labs: Laboratory Tests 01/15/23 21:44 Sodium 133 L Potassium 5.5 H Chloride 107 Carbon Dioxide 15 L Anion Gap 11.0 BUN 35 H Creatinine 3.0 H Estimated GFR (MDRD) 23 L Glucose 170 H Calcium 7.0 L Total Bilirubin 1.5 H AST 38 ALT 8 L Alkaline Phosphatase 77 Total Protein 4.7 L Albumin 1.8 L Globulin 2.9 Albumin/Globulin Ratio 0.6 L Lipase 27 Ethyl Alcohol 98.9 - Rads (name of study) Head CT Relevant Findings:: Final report received, See rad report PD Medical Decision Making - ED course Complexity details: reviewed results, re-evaluated patient, considered alexa man, d/w patient ED course: Patient signed out to the oncoming emergency department physician awaiting CBC and head CT. Patient denies any history of varices. Denies any vomiting of blood. He states he has had chronic blood in his stool for months. Depending on these results we will determine the need for admission, high likelihood that the patient will need to be admitted to the hospital. Please see Dr. Bella note for further care. This document was made in part using voice recognition software. While efforts are made to proofread this document, sound alike and grammatical errors may occur. Departure - Departure Clinical Impression: Liver disease Ascites Qualifiers: Ascites type: due to alcoholic cirrhosis Qualified Code(s): K70.31 - Alcoholic cirrhosis of liver with ascites Alcoholic cirrhosis Qualifiers: Ascites presence: with ascites Qualified Code(s): K70.31 - Alcoholic cirrhosis of liver with ascites Condition: Stable Forms: PCP List
[2023-01-15 22:06] LABS: ALBUMIN 1.8 g/dL (3.2-5.5); ALBUMIN/GLOBULIN RATIO 0.6 (1.0-2.2); BILIRUBIN,TOTAL 1.5 mg/dL (0.2-1.0); ETOH - ETHANOL 98.9 mg/dL; POTASSIUM 5.5 mmol/L (3.5-4.5); TOTAL PROTEIN 4.7 g/dL (6.4-8.9)
[2023-01-15 22:09] LABS: PARTIAL THROMBOPLASTIN TIME 41.9 secs (24.9-33.3)
[2023-01-15] MEDS ORDERED: PROMETHAZINE 25 MG/1 ML VIAL ONE (22:12)
--- NOTE | 2023-01-15 23:20 | CT Report ---
PROCEDURE: HEAD WO INDICATIONS: syncope vs seizure TECHNIQUE: Noncontrast 4.5 mm thick angled axial sections acquired from the foramen magnum to the vertex. For r adiation dose reduction, the following was used: automated exposure control, adjustment of mA and/or kV according to patient size. COMPARISON: None. FINDINGS: Image quality: Excellent. CSF spaces: There is mild cerebral volume loss with prominence of the ventricles and sulci. Basal ci sterns are patent. No extra-axial fluid collections. Brain: No intracranial hemorrhage, mass, or mass effect. Morales-white matter interface is preserved. T here are subcortical and periventricular white matter hypodensities consistent with chronic small ves brisa ischemic changes. Skull and face: Calvarium and visualized facial bones are intact, without suspicious lesions. Sinuses: Visualized sinuses and mastoids are clear. IMPRESSION: 1. No acute intracranial abnormality. Reviewed by: Iain Harris MD on 01/15/2023 11:18 PM PDT Approved by: Iain Harris MD on 01/15/2023 11:18 PM PDT Station ID: [id number]
--- NOTE | 2023-01-15 23:23 | ED Physician Documentation ---
ED Addendum - Addendum Addendum: 01/15/23 23:22 2308 - 118 sinus tachycardia, normal FL, normal QRS. normal axis. non-specific changes.
[2023-01-15 23:37] LABS: LYMPHOCYTES # (AUTO) 0.9 10^3/uL (1.5-3.5); MEAN CORPUSCULAR HEMOGLOBIN 33.9 pg (27.0-31.0); MEAN CORPUSCULAR HGB CONC 30.8 g/dL (32.0-36.0); MEAN CORPUSCULAR VOLUME 110.2 fL (80.0-94.0); MEAN PLATELET VOLUME 10.5 fL (7.4-11.4); MONOCYTES # (AUTO) 0.5 10^3/uL (0.0-1.0); MONOCYTES % (AUTO) 7.3 %; NEUTROPHILS # (AUTO) 5.2 10^3/uL (1.5-6.6); NEUTROPHILS % (AUTO) 78.9 %; PLT - PLATELET COUNT 90 10^3/uL (130-450); RED BLOOD COUNT 1.18 10^6/uL (4.70-6.10); RED CELL DISTRIBUTION WIDTH 18.1 % (12.0-15.0); WHITE BLOOD COUNT 6.5 x10^3/uL (4.8-10.8)
[2023-01-16] MEDS ORDERED: ALBUMIN 25% 12.5 GM/50 ML VIAL IV STA (01:38)
--- NOTE | 2023-01-16 02:27 | ED Physician Documentation ---
ED Addendum - Addendum Addendum: 01/16/23 02:24 I spoke with Telehealth physician about this patient at approximately 00:50. He says his shift is ending shortly and asks that I reenter a consult after 1 AM to speak to oncoming telehealth physician. I put in a new consult on this same patient at approximately 01:15. After having not heard from telehealth for an hour, I entered another, new consult on this same patient at 02:20. 01/16/23 04:21 D/W telehealth physician. He requests CT A/P (w/o contrast due to low GFR), guaiac stool, vitamin k. Will again discuss case when CT A/P results available. CT demonstrates large volume ascities, cholelithiasis. Patient had hypotensive readings for several hours on my shift but improved after IV albumin, 1 liter NS bolus, and 2 units PRBC transfusion. Telehealth physician entered orders into [facility] for admission. At approximately 5:30 AM, I was made aware that the ICU bed that had been available was now taken due to a transfer from med/surg floor. At end of my shift, there is apparently possibility that ICU bed will be available later this morning and thus care of patient turned over to oncoming ED physician (Dr. Aviles).
[2023-01-16] MEDS ORDERED: PHYTONADIONE 10 MG/ML AMP SUBQ STA (02:58)
[2023-01-16] MEDS ORDERED: SODIUM CHLORIDE 0.9% 1,000 ML IV STA ×2 (03:53→08:37)
[2023-01-16] MEDS ORDERED: SODIUM CHLORIDE FLUSH 0.9% 10 ML SYRINGE IVP PRN (05:26)
[2023-01-16] MEDS ORDERED: LORazepam 2 MG/ML VIAL IVP PRN (05:43)
[2023-01-16] MEDS ORDERED: ONDANSETRON 4 MG/2 ML VIAL IVP PRN (05:55)
[2023-01-16] MEDS ORDERED: LACTATED RINGERS 1,000 ML IV SCH (06:00)
[2023-01-16] MEDS ORDERED: LACTULOSE 10 GM /15 ML UDC PO SCH (06:00)
--- NOTE | 2023-01-16 06:12 | HISTORY & PHYSICAL EXAMINATION ---
Chief Complaint - Chief Complaint Chief Complaint: syncope History of Present Illness - History of Present Illness HPI Comment/Other: pt brought to ED for evaluation d/t reports of pt having syncopal episode at home, witnessed by mother. pt states that he was not feeling well over past few days and he called his mother to his room, who stated that he tried to stand up from his bed and felt dizzy and fell back down, and then he started to "shake all over." episode lasted for about 4-5 minutes, and pt was immediately able to get back up. pt denies any chest pain, fevers, or chills. he states he remembers calling his mother and then waking up in the bed. no vomiting or loss of bowels or urine noted or reported. pt states he drinks daily, but denies any other drug / tobacco usage. pt states he has h/o gastritis and is supposed to be seeing a GI specialist as outpt d/t liver cirrhosis, but this has not happened as of yet. History - Past Medical History Cardiovascular: reports: None Respiratory: reports: None Neuro: reports: None Endocrine/Autoimmune: reports: None GI: reports: Cirrhosis : reports: None HEENT: reports: Other (Allergic rhinitis) Psych: reports: Depression Musculoskeletal: reports: None Derm: reports: None MRSA Hx?: No - Past Surgical History General: reports: Appendectomy - Family & Social History Family History: Mother: Alive and Well, Father: Alive and Well Family History Comment/Other: Mom is in her 70s and has diet-controlled diabetes and Graves' disease. Dad is in his 70s and has Graves' disease, hypertension, diabetes, coronary artery disease. He has 2 sisters and 1 brother. 2 sisters have thyroid disease. No child Living Situation: With family Social History Notes: He lives with his mother. He drives a car. 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 He quit smoking 2018. He drinks a sixpack of beer or more a day. Other than cannabis he denies fentanyl, meth, heroin, cocaine use - Substance History Use: Uses substance without health or social issues: NONE Meds/Allgy - Home Medications Home Medications: Ambulatory Orders Medication Instructions Recorded Confirmed Ferrous Gluconate 324 mg PO DAILY #30 tablet 12/01/22 12/19/22 Furosemide [Lasix] 40 mg PO DAILY 12/19/22 12/19/22 Furosemide [Lasix] 40 mg PO MOWEFR #15 tab 12/19/22 Lactulose [Enulose] 10 gm PO TID 12/19/22 12/19/22 Pantoprazole [Protonix] 40 mg PO QDAC 12/19/22 12/19/22 Spironolactone [Aldactone] 100 mg PO DAILY 12/19/22 12/19/22 carvediloL [Coreg] 6.25 mg PO BIDWM 12/19/22 12/19/22 - Allergies Allergies/Adverse Reactions: Allergies Allergy/AdvReac Type Severity Reaction Status Date / Time Penicillins Allergy Unknown Verified 01/15/23 21:12 Review of Systems - Other Findings Other Findings: 14 pt review done with positives per hpi; all others reviewed as negative Exam - Vital Signs Vital Signs: Vital Signs x48h Temp Pulse Pulse Resp BP BP Pulse Ox 01/16/23 05:42 35.7 C L 112 H 16 76/40 L 100 01/16/23 02:48 36.0 C L 110 H 16 91/55 L 100 01/16/23 01:03 35.7 C L 115 H 16 80/43 L 100 01/16/23 00:47 35.9 C L 125 H 16 78/48 L 100 01/15/23 23:37 124 H 16 70/39 L 100 01/15/23 22:46 127 H 16 86/43 L 100 - Physical Exam Comments/Other: gen - awake, alert, oriented but has some trouble remembering all details heent - eomi, nc/at, icteric sclerae heart - per RN, rrr lungs - decreased bibasilar sounds abd - soft, distended but compressible msk - thin extremities with muscle wasting skin - jaundiced Conclusion/Plan - Lab Results Fish Bones: 01/15/23 23:21 01/15/23 21:44 - Other Other Results/Comments: pt with - - syncope and collapse likely d/t anemia (below) CT head NEG for acute pathology no head trauma, as pt fell back onto bed, per mom - seizure no h/o same, no post-ictal state noted CT head NEG, check MRI and carotid dopplers continue neuro checks - GEORGE likely in setting of pre-renal azotemia d/t blood and fluid losses concern for ATN --> continue IVF, give bicarb d/t prevent RTA check renal sono, avoid nephrotoxins - supratherapeutic INR in setting of cirrhosis vitamin K ordered in ED, monitor - acute anemia d/t above pt denies noting any obvious blood loss transfusions started monitor h/h, check fobt, check CT abd/pelvis to assess for bleed and d/t reports of abd pain - liver cirrhosis d/t etoh use disorder pt continues to drink daily --> counseled to stop ciwa protocol ordered contributory to above avoid hepatoxins MELD score 28 f/u labs, replete electrolytes further orders per clinical course
[2023-01-16] MEDS ORDERED: SODIUM BICARBONATE ABBOJECT 50 MEQ/50 ML SYRINGE IVP STA (06:31)
[2023-01-16] MEDS ORDERED: PANTOPRAZOLE 40 MG TABLET PO SCH (07:00)
[2023-01-16] MEDS ORDERED: PANTOPRAZOLE 80 MG in SODIUM CHLORIDE 0.9% 100ML 100 ML IV STA (07:35)
[2023-01-16] MEDS ORDERED: cefTRIAXone 1 GM VIAL IVP STA (07:36)
[2023-01-16] MEDS ORDERED: OCTREOTIDE 100 MCG/ML VIAL IVP STA (07:36)
[2023-01-16] MEDS ORDERED: OCTREOTIDE 500 MCG in SODIUM CHLORIDE 0.9% 100ML 99 ML IV STA (07:41)
--- NOTE | 2023-01-16 07:46 | ED Physician Documentation ---
ED Addendum - Addendum Addendum: Patient received a signout from outgoing physician, please see their documentation for further detail. Patient evaluated independently at bedside. Has a persistent low-level sinus tachycardia but systolic blood pressures now greater than 100. He denies any pain or discomfort. Physical exam demonstrates mild jaundice with mild scleral icterus and a distended abdomen with positive fluid wave. No abdominal tenderness. Labs reviewed. Concerning for severe anemia. Worsening renal dysfunction with possible hepatorenal Dysfunction. Patient did endorse for 1 episode of bright red blood vomiting immediately prior to CT. I have ordered for Rocephin, octreotide, continuous Protonix. Patient had episode of dark coffee-ground emesis in the emergency department. This was associated with hypotension andIf further 2 units type and cross blood were ordered. He was given fluid resuscitation. Repeat labs demonstrated mild improvement in patient's hemoglobin of 5.7 but worsening renal function and worsening hyperkalemia. Treated with insulin, calcium, dextrose. Consulted with in-house surgery as well as with the artificial cherry maker at [facility]. Patient graciously excepted in transfer to [facility] by Dr. Valdez. Silver Buffer. Transferred in guarded condition. 01/16/23 07:40 01/16/23 16:59
[2023-01-16] MEDS ORDERED: ONDANSETRON 4 MG/2 ML VIAL IVP STA ×2 (07:49)
[2023-01-16] MEDS ORDERED: LORazepam 2 MG/ML VIAL IVP STA (07:52)
[2023-01-16] MEDS ORDERED: carvediloL 3.125 MG TABLET PO SCH (08:00)
[2023-01-16] MEDS ORDERED: METOCLOPRAMIDE 10 MG/2 ML VIAL IVP STA (08:19)
[2023-01-16 08:37] LABS: BASOPHILS % (AUTO) 0.1 %; LYMPHOCYTES # (AUTO) 1.5 10^3/uL (1.5-3.5); LYMPHOCYTES % (AUTO) 14.6 %; MEAN CORPUSCULAR HEMOGLOBIN 30.2 pg (27.0-31.0); MEAN CORPUSCULAR HGB CONC 31.8 g/dL (32.0-36.0); MEAN PLATELET VOLUME 9.9 fL (7.4-11.4); MONOCYTES # (AUTO) 0.7 10^3/uL (0.0-1.0); MONOCYTES % (AUTO) 7.1 %; NEUTROPHILS # (AUTO) 7.7 10^3/uL (1.5-6.6); NEUTROPHILS % (AUTO) 77.3 %; PLT - PLATELET COUNT 75 10^3/uL (130-450); RED BLOOD COUNT 1.79 10^6/uL (4.70-6.10); RED CELL DISTRIBUTION WIDTH 18.8 % (12.0-15.0); WHITE BLOOD COUNT 9.9 x10^3/uL (4.8-10.8)
[2023-01-16 08:43] LABS: HGB - HEMOGLOBIN 5.4 g/dL (14.0-18.0)
[2023-01-16 08:51] LABS: ALBUMIN 2.1 g/dL (3.2-5.5)
[2023-01-16 08:54] LABS: POTASSIUM 6.6 mmol/L (3.5-4.5)
[2023-01-16 08:55] LABS: ALBUMIN/GLOBULIN RATIO 0.8 (1.0-2.2); CREATININE 3.6 mg/dL (0.6-1.3); TOTAL PROTEIN 4.9 g/dL (6.4-8.9)
[2023-01-16] MEDS ORDERED: SODIUM CHLORIDE FLUSH 0.9% 10 ML SYRINGE IVP SCH (09:00)
[2023-01-16] MEDS ORDERED: SPIRONOLACTONE 25 MG TABLET PO SCH (09:00)
[2023-01-16] MEDS ORDERED: THIAMINE 100 MG TABLET PO SCH (09:00)
[2023-01-16] MEDS ORDERED: FERROUS GLUCONATE 324 MG TABLET PO SCH (09:00)
[2023-01-16] MEDS ORDERED: PRENATAL VITAMIN TABLET PO SCH (09:00)
[2023-01-16] MEDS ORDERED: CALCIUM GLUC 1,000MG/50ML-NACL 1,000 MG/50 ML BAG IV STA (09:08)
[2023-01-16] MEDS ORDERED: INSULIN REGULAR HUMAN 300 UNIT/3 ML VIAL SUBQ STA (09:08)
[2023-01-16] MEDS ORDERED: DEXTROSE 50% ABBOJECT 25 GM/50 ML SYRINGE IVP STA (09:08)
--- NOTE | 2023-01-16 10:59 | CT Report ---
PROCEDURE: CT abdomen and pelvis without contrast INDICATIONS: cirrhosis, severe anemia TECHNIQUE: A CT scan of the abdomen and pelvis was performed without the use of intravenous contrast. Images we re recorded and evaluated at appropriate window settings. Reformats: coronal and sagittal. For radiat ion dose reduction, the following was used: automated exposure control, adjustment of mA and/or kV ac cording to patient size. COMPARISON: 01/31/2022 FINDINGS: Image quality: Excellent. Lung bases and heart: Bilateral gynecomastia. No pleural effusion. Liver: Hepatomegaly with suggestion of capsular microscalloping consistent with hepatic cirrhosis. La rge volume ascites Gallbladder and biliary tree: Cholelithiasis Spleen: No splenomegaly. Pancreas: No pancreatic ductal dilation. Adrenals: No adrenal nodule. Kidneys and ureters: No hydronephrosis. No renal cystic lesion which requires follow up. No solid mas s. Bowel and peritoneum: No bowel distension. No pathologic free fluid. Lymph nodes: No central or retroperitoneal adenopathy. Vessels: No infrarenal aortic aneurysm. PELVIS Reproductive organs: Unremarkable. Bladder: No wall thickness, accounting for underdistention. Pelvic lymph nodes: No pelvic adenopathy by size criteria. Bones: No aggressive osseous abnormality. Other: Bilateral inguinal hernias and fat without bowel involvement IMPRESSION: Large volume abdominal ascites evidence of hepatic cirrhosis without splenomegaly Cholelithiasis Reviewed by: Ramesh Rothman MD on 01/16/2023 9:57 AM WILL Approved by: Ramesh Rothman MD on 01/16/2023 9:57 AM WILL Station ID: [id number]
[2023-01-16 13:16] VITALS: BP 90/59; O2SAT 97
[2023-01-17] MEDS ORDERED: PANTOPRAZOLE 40 MG TABLET PO SCH (09:00)
== END 2023-01-16 13:48 | disposition short-term general hospital (02) ==
LOC: ED 21:08
DX: K70.31 Alcoholic cirrhosis of liver with ascites (principal); R00.0 Tachycardia, unspecified; D64.9 Anemia, unspecified; K92.0 Hematemesis; Z87.891 Personal history of nicotine dependence; Z79.899 Other long term (current) drug therapy
CPT/HCPCS: 36415; 70450; 74176; 80053; 80320; 82140; 82272; 83690; 85025; 85610; 85730; 86850; 86900; 86901; 86920; 93005; 93306; 96361; 96365; 96367; 96372; 96375; 99285; J1815; J2060; J2354; J2765; J7040; J7120; P9016; P9047; 80061; 83036; 83721; 84443

== ENCOUNTER 2023-02-03 11:27 | Emergency (ER) | payer MEDICAID ==
--- NOTE | 2023-02-03 12:05 | ED Physician Documentation ---
PD HPI ABD PAIN - Stated complaint Stated Complaint: STOMACH PX - Chief complaint Chief Complaint: Abd Pain - History obtained from History obtained from: Patient - Additional information Additional information: 42-year-old gentleman with alcoholic cirrhosis presents requesting paracentesis due to symptomatic ascites. Last paracentesis was about a month ago. He denies alcohol use for about 3 to 4 weeks. PD PAST MEDICAL HISTORY - Past Medical History Cardiovascular: None Respiratory: None Neuro: None Endocrine/Autoimmune: None GI: Cirrhosis : None HEENT: Other (Allergic rhinitis) Psych: Depression Musculoskeletal: None Derm: None - Past Surgical History General: Appendectomy - Present Medications Home Medications: Ambulatory Orders Medication Instructions Recorded Confirmed Ferrous Gluconate 324 mg PO DAILY #30 tablet 12/01/22 02/03/23 Furosemide [Lasix] 40 mg PO DAILY 12/19/22 02/03/23 Lactulose [Enulose] 10 gm PO TID 12/19/22 02/03/23 Pantoprazole [Protonix] 40 mg PO QDAC 12/19/22 02/03/23 Spironolactone [Aldactone] 100 mg PO DAILY 12/19/22 02/03/23 carvediloL [Coreg] 6.25 mg PO BIDWM 12/19/22 02/03/23 - Allergies Allergies/Adverse Reactions: Allergies Allergy/AdvReac Type Severity Reaction Status Date / Time Penicillins Allergy Unknown Verified 02/03/23 11:32 - Social History Does the pt smoke?: No Smoking Status: Former smoker PD ED PE NORMAL - Vitals Vital signs reviewed: Yes - General General: Alert and oriented X 3, Other (Jaundiced and peripherally cachectic) - Abdomen Abdomen: Other (Distended fluid-filled abdomen that is nontender.) - Neuro Neuro: Alert and oriented X 3, Normal speech Results - Vitals Vitals: Vital Signs - 24 hr 02/03/23 11:34 Temperature 37.6 C Heart Rate 131 H Respiratory 18 Rate Blood Pressure 124/76 O2 Saturation 98 Oxygen O2 Source Room air - Labs Labs: Laboratory Tests 02/03/23 02/03/23 02/03/23 12:10 12:10 12:10 WBC 6.9 RBC 2.43 L Hgb 7.9 L Hct 24.3 L MCV 100.0 H MCH 32.5 H MCHC 32.5 RDW 17.9 H Plt Count 226 MPV 9.0 Neut # (Auto) 4.4 Lymph # (Auto) 1.1 L Story # (Auto) 1.0 Eos # (Auto) 0.4 Baso # (Auto) 0.1 Absolute Nucleated RBC 0.00 Nucleated RBC % 0.0 PT 16.5 H INR 1.5 H Sodium 132 L Potassium 3.6 Chloride 106 Carbon Dioxide 20 L Anion Gap 6.0 BUN 14 Creatinine 1.1 Estimated GFR (MDRD) 74 L Glucose 133 H Calcium 8.7 Magnesium 1.7 Total Bilirubin 1.8 H AST 43 H ALT 14 Alkaline Phosphatase 123 H Total Protein 6.9 Albumin 2.5 L Globulin 4.4 H Albumin/Globulin Ratio 0.6 L Lipase 35 Ethyl Alcohol < 10.0 Procedures - Paracentesis - Major Preparation: Consent obtained, Ultrasound guidance, Sterile prep and drape, Local anesthesia Location: LLQ Technique: Z-tract, Catheter over needle Fluid: Clear, Volume - enter cc (6 liters) Aftercare: No complications, Patient tolerated well, Dressing applied PD Medical Decision Making - ED course ED course: 42-year-old gentleman with cirrhosis presents requesting paracentesis for symptomatic ascites. Nothing in the history or physical to suggest SBP. CBC done and notable for significantly improved anemia over prior. INR elevated at 1.5, improved from prior, liver enzymes improved from prior, blood alcohol negative. 6 L paracentesis was done with symptomatic relief. His mom arrived to the bedside and notes that he does have an outpatient order for this to be done and we counseled him on how they can do this as an outpatient if he does not have an emergency medical concern. Departure - Departure Disposition: 01 Home, Self Care Clinical Impression: Ascites Qualifiers: Ascites type: due to alcoholic cirrhosis Qualified Code(s): K70.31 - Alcoholic cirrhosis of liver with ascites Alcoholic cirrhosis Qualifiers: Ascites presence: with ascites Qualified Code(s): K70.31 - Alcoholic cirrhosis of liver with ascites Condition: Good Record reviewed to determine appropriate education?: Yes Instructions: Cirrhosis Liver Dc Comments: Going forward since you have a order from your doctor to have a paracentesis done, you can schedule, just call [phone], extension [phone] Sunday through Sunday. Try to get it scheduled a few days before you think you will need it done. Return if worse. Forms: PCP List
[2023-02-03 12:15] LABS: BASOPHILS # (AUTO) 0.1 10^3/uL (0.0-0.1); BASOPHILS % (AUTO) 0.9 %; EOSINOPHILS # (AUTO) 0.4 10^3/uL (0.0-0.7); EOSINOPHILS % (AUTO) 5.2 %; HCT - HEMATOCRIT 24.3 % (42.0-52.0); HGB - HEMOGLOBIN 7.9 g/dL (14.0-18.0); LYMPHOCYTES # (AUTO) 1.1 10^3/uL (1.5-3.5); MEAN CORPUSCULAR HEMOGLOBIN 32.5 pg (27.0-31.0); MEAN CORPUSCULAR HGB CONC 32.5 g/dL (32.0-36.0); MONOCYTES % (AUTO) 14.6 %; NEUTROPHILS # (AUTO) 4.4 10^3/uL (1.5-6.6); PLT - PLATELET COUNT 226 10^3/uL (130-450); RED BLOOD COUNT 2.43 10^6/uL (4.70-6.10); RED CELL DISTRIBUTION WIDTH 17.9 % (12.0-15.0); WHITE BLOOD COUNT 6.9 x10^3/uL (4.8-10.8)
[2023-02-03 12:22] LABS: INR 1.5 (0.8-1.2); PT - PROTHROMBIN TIME 16.5 secs (9.9-12.6)
[2023-02-03 12:29] LABS: ALBUMIN 2.5 g/dL (3.2-5.5); ALBUMIN/GLOBULIN RATIO 0.6 (1.0-2.2); ALKALINE PHOSPHATASE 123 IU/L (42-121); ALT ALANINE AMINOTRANSFERASE 14 IU/L (10-60); AST ASPARTATE AMINOTRANSFERASE 43 IU/L (10-42); BILIRUBIN,TOTAL 1.8 mg/dL (0.2-1.0); BUN - BLOOD UREA NITROGEN 14 mg/dL (6-20); CALCIUM 8.7 mg/dL (8.5-10.3); CARBON DIOXIDE - CO2 20 mmol/L (21-32); CHLORIDE 106 mmol/L (101-111); CREATININE 1.1 mg/dL (0.6-1.3); ETOH - ETHANOL < 10.0 mg/dL; GFR - MDRD 74 (>89); GLUCOSE 133 mg/dL (74-104); LIPASE 35 U/L (11-82); MAGNESIUM 1.7 mg/dL (1.7-2.3); POTASSIUM 3.6 mmol/L (3.5-4.5); SODIUM 132 mmol/L (135-145); TOTAL PROTEIN 6.9 g/dL (6.4-8.9)
[2023-02-03 13:53] VITALS: BP 117/73; O2SAT 100
== END 2023-02-03 13:45 | disposition home or self-care (01) ==
LOC: ED 11:27
DX: K70.31 Alcoholic cirrhosis of liver with ascites (principal); Z87.891 Personal history of nicotine dependence; Z79.899 Other long term (current) drug therapy
CPT/HCPCS: 36415; 49082; 80053; 80320; 83690; 83735; 85025; 85610; 99283

== ENCOUNTER 2023-02-09 12:23 | Outpatient (CLI) | payer MEDICAID | END 2023-02-09 12:24 | disposition home or self-care (01) | LOC: LAB.R 12:23 | PROVIDERS: ATTEND Registered Nurse | DX: K70.31 Alcoholic cirrhosis of liver with ascites (principal); K76.82 Hepatic encephalopathy; N18.9 Chronic kidney disease, unspecified | CPT/HCPCS: 82140 ==

== ENCOUNTER 2023-05-22 13:46 | Emergency (ER) | payer MEDICAID ==
[2023-05-22] MEDS ORDERED: TETANUS/DIPHTHERIA/PERTUSSIS 0.5 ML SYRINGE IM ONE ×2 (14:04→16:00)
[2023-05-22 14:10] VITALS: BP 109/72; O2SAT 100
--- NOTE | 2023-05-22 15:12 | ED Physician Documentation ---
PD HPI HEAD INJURY - Stated complaint Stated Complaint: HEAD INJ - Chief complaint Chief Complaint: Trauma Hd/Nk - History obtained from History obtained from: Patient - Additional information Additional information: Patient is a 42-year-old male presenting for evaluation of a head injury that occurred this morning. Patient states he was in the shower and stepped out and excellently slipped and fell back. He denies LOC but did hit his head. He reports there was a small laceration that initially was bleeding but that has since stopped. He is unsure of his last tetanus. He does not take a blood thinner. Denies drug or alcohol use today. Review of Systems Cardiac: denies: Chest pain / pressure Respiratory: denies: Dyspnea GI: denies: Abdominal Pain, Vomiting Neurologic: reports: Head injury. denies: Syncope PD PAST MEDICAL HISTORY - Past Medical History Past Medical History: Yes Cardiovascular: None Respiratory: None Neuro: None Endocrine/Autoimmune: None GI: Cirrhosis : None HEENT: Other Psych: Depression Musculoskeletal: None Derm: None - Past Surgical History Past Surgical History: Yes General: Appendectomy - Present Medications Home Medications: Ambulatory Orders Medication Instructions Recorded Confirmed Ferrous Gluconate 324 mg PO DAILY #30 tablet 12/01/22 02/03/23 Furosemide [Lasix] 40 mg PO DAILY 12/19/22 02/03/23 Lactulose [Enulose] 10 gm PO TID 12/19/22 02/03/23 Pantoprazole [Protonix] 40 mg PO QDAC 12/19/22 02/03/23 Spironolactone [Aldactone] 100 mg PO DAILY 12/19/22 02/03/23 carvediloL [Coreg] 6.25 mg PO BIDWM 12/19/22 02/03/23 - Allergies Allergies/Adverse Reactions: Allergies Allergy/AdvReac Type Severity Reaction Status Date / Time Penicillins Allergy Unknown Verified 05/22/23 14:00 - Social History Does the pt smoke?: No Smoking Status: Never smoker Does the pt have substance abuse?: No - Immunizations Immunizations are current?: No Immunizations: TDAP >10years/unknown PD ED PE NORMAL - General General: Alert and oriented X 3, No acute distress, Well developed/nourished - HEENT HEENT: Moist mucous membranes, Pharynx benign, Other (1 cm laceration to posterior scalp) - Neck Neck: Supple, no meningeal sign, No bony TTP, C-Spine cleared by NEXUS criteria - Cardiac Cardiac: RRR, Strong equal pulses - Respiratory Respiratory: No respiratory distress, Clear bilaterally - Abdomen Abdomen: Soft, Non tender - Derm Derm: Warm and dry - Extremities Extremities: No deformity - Neuro Neuro: Alert and oriented X 3, boat puller 2-12 intact, No motor deficit, No sensory deficit, Normal speech Eye Opening: Spontaneous Motor: Obeys Commands Verbal: Oriented GCS Score: 15 Results - Vitals Vitals: Vital Signs - 24 hr 05/22/23 13:57 Temperature 36.8 C Heart Rate 86 Respiratory 16 Rate Blood Pressure 109/72 O2 Saturation 100 Oxygen O2 Source Room air Procedures - Laceration (location) Scalp Length in cm: 1 Wound type: Linear Wound preparation: Hibiclens, Irrigated copiously NS Skin layer closure: Knox (2) Other: Patient tolerated well, No complications, Neurovascular intact, Tetanus booster given PD Medical Decision Making - ED course ED course: Patient is a 42-year-old male presenting for evaluation of scalp laceration and head injury. Normal neuroexam.Patient has no exam findings to warrant emergent neuroimaging and also does not have other high risk features such as being on a blood thinner to warrant neuroimaging for his head injury. Does have a small laceration that was closed with 2 clemente. Tetanus booster was given. Patient counseled on concerning symptoms to return for as well as need for staple removal. Departure - Departure Disposition: 01 Home, Self Care Clinical Impression: Head injury, Scalp laceration Condition: Stable Instructions: ED Head Injury Closed, ED Laceration Scalp Stitch Or Stap Comments: You were evaluated after head injury. You have a small laceration to the back of your head that was closed with 2 clemente. You should be kept in place for 7 days. You can return to the ER to a walk-in clinic to have them removed. You were given a tetanus booster today. At this time I do not see signs of any significant traumatic brain injuries. If you develop any new symptoms such as headache, confusion, weakness or have any other concerns please return to the ER for evaluation. Forms: PCP List Discharge Date/Time: 05/22/23 15:40
== END 2023-05-22 15:40 | disposition home or self-care (01) ==
LOC: ED 13:46
DX: S01.01XA Laceration without foreign body of scalp, initial encounter (principal); W18.2XXA Fall in (into) shower or empty bathtub, initial encounter; Y93.F1 Activity, caregiving, bathing; Z23 Encounter for immunization
CPT/HCPCS: 12001; 99282; 99283

== ENCOUNTER 2023-06-14 21:28 | Outpatient (CLI) | payer MEDICAID | END 2023-06-14 21:29 | disposition critical access hospital (66) | LOC: EMS 21:28 | DX: R41.82 Altered mental status, unspecified (principal); F10.10 Alcohol abuse, uncomplicated | CPT/HCPCS: A0425; A0429; A0999 ==

== ENCOUNTER 2023-06-14 21:37 | Emergency (ER) | payer MEDICAID ==
[2023-06-14] MEDS ORDERED: THIAMINE INJ 100 MG in SODIUM CHLORIDE 0.9% 50 ML IV STA (21:39)
--- NOTE | 2023-06-14 21:43 | ED Physician Documentation ---
History of Present Illness - Stated complaint Stated Complaint: AMS - History obtained from History obtained from: EMS - Additonal information Additional information: 42-year-old gentleman brought in by ambulance. He has a known history of alcoholism with cirrhosis. His mom left the house early this morning and came back and found him obtunded. There is no clear trauma. PD PAST MEDICAL HISTORY - Past Medical History Cardiovascular: None Respiratory: None Neuro: None Endocrine/Autoimmune: None GI: Cirrhosis : None HEENT: Other Psych: Depression Musculoskeletal: None Derm: None - Past Surgical History Past Surgical History: Yes General: Appendectomy - Present Medications Home Medications: Ambulatory Orders Medication Instructions Recorded Confirmed Ferrous Gluconate 324 mg PO DAILY #30 tablet 12/01/22 02/03/23 Furosemide [Lasix] 40 mg PO DAILY 12/19/22 02/03/23 Lactulose [Enulose] 10 gm PO TID 12/19/22 02/03/23 Pantoprazole [Protonix] 40 mg PO QDAC 12/19/22 02/03/23 Spironolactone [Aldactone] 100 mg PO DAILY 12/19/22 02/03/23 carvediloL [Coreg] 6.25 mg PO BIDWM 12/19/22 02/03/23 - Allergies Allergies/Adverse Reactions: Allergies Allergy/AdvReac Type Severity Reaction Status Date / Time Penicillins Allergy Unknown Verified 06/14/23 21:42 - Social History Does the pt smoke?: No Smoking Status: Never smoker Does the pt have substance abuse?: No - Immunizations Immunizations are current?: No Immunizations: TDAP >10years/unknown PD ED PE NORMAL - Vitals Vital signs reviewed: Yes - General General: Other (Unresponsive jaundiced male in no distress) - HEENT HEENT: PERRL, Other (seems to be protecting airway) - Neck Neck: Supple, no meningeal sign, No bony TTP - Cardiac Cardiac: RRR, No murmur - Respiratory Respiratory: No respiratory distress, Clear bilaterally - Abdomen Abdomen: Non tender - Neuro Eye Opening: To Pain Motor: Withdraws to Pain Verbal: None GCS Score: 7 Results - Vitals Vitals: Vital Signs - 24 hr 06/14/23 06/14/23 06/14/23 21:42 21:45 22:15 Temperature 36.7 C Heart Rate 120 H 122 H 123 H Respiratory 20 20 28 H Rate Blood Pressure 135/88 H 140/90 H 146/76 H O2 Saturation 100 95 100 If not protocol 4 4 : Oxygen Flow, liters/minute 06/14/23 06/14/23 06/14/23 22:30 23:00 23:30 Temperature Heart Rate 129 H 130 H 130 H Respiratory 30 H 27 H 26 H Rate Blood Pressure 146/76 H 137/88 H 138/93 H O2 Saturation 99 99 100 If not protocol : Oxygen Flow, liters/minute Oxygen O2 Source Room air - Labs Labs: Laboratory Tests 06/14/23 06/14/23 06/14/23 21:50 21:50 21:50 WBC 5.9 RBC 1.82 L Hgb 6.6 L* Hct 18.4 L* MCV 101.1 H MCH 36.3 H MCHC 35.9 RDW 14.4 Plt Count 77 L MPV 9.6 Neut # (Auto) 4.5 Lymph # (Auto) 0.4 L Eddy # (Auto) 0.8 Eos # (Auto) 0.0 Baso # (Auto) 0.0 Absolute Nucleated RBC 0.00 Nucleated RBC % 0.0 PT 18.2 H INR 1.7 H Sodium 122 L Potassium 5.3 H Chloride 90 L Carbon Dioxide 19 L Anion Gap 13.0 BUN 24 H Creatinine 3.1 H Estimated GFR (MDRD) 22 L Glucose 131 H Calcium 8.7 Magnesium 1.6 L Total Bilirubin 6.5 H AST 73 H ALT 14 Alkaline Phosphatase 129 H Ammonia Total Protein 8.0 Albumin 3.3 Globulin 4.7 H Albumin/Globulin Ratio 0.7 L Lipase 84 H Urine Color Urine Clarity Urine pH Ur Specific [place] Urine Protein Urine Glucose (UA) Urine Ketones Urine Occult Blood Urine Nitrite Urine Bilirubin Urine Urobilinogen Ur Leukocyte Esterase Urine RBC Urine WBC Ur Squamous Epith Cells Urine Bacteria Ur Microscopic Review Urine Culture Comments Urine Opiates Screen Ur Buprenorphine Scrn Ur Oxycodone Screen Urine Methadone Screen Ur Barbiturates Screen Ur Tricyclics Screen Ur Phencyclidine Scrn Ur Amphetamine Screen U Methamphetamines Scrn U Benzodiazepines Scrn Urine Cocaine Screen U Cannabinoids Screen Ur Drug Screen Comment Ethyl Alcohol < 10.0 06/14/23 06/14/23 21:50 22:43 WBC RBC Hgb Hct MCV MCH MCHC RDW Plt Count MPV Neut # (Auto) Lymph # (Auto) Eddy # (Auto) Eos # (Auto) Baso # (Auto) Absolute Nucleated RBC Nucleated RBC % PT INR Sodium Potassium Chloride Carbon Dioxide Anion Gap BUN Creatinine Estimated GFR (MDRD) Glucose Calcium Magnesium Total Bilirubin AST ALT Alkaline Phosphatase Ammonia 269.7 H* Total Protein Albumin Globulin Albumin/Globulin Ratio Lipase Urine Color DARK YELLOW Urine Clarity CLEAR Urine pH 5.5 Ur Specific [place] 1.025 Urine Protein TRACE Urine Glucose (UA) NEGATIVE Urine Ketones TRACE Urine Occult Blood NEGATIVE Urine Nitrite POSITIVE H Urine Bilirubin MODERATE H Urine Urobilinogen 4 H Ur Leukocyte Esterase NEGATIVE Urine RBC 0-5 Urine WBC 0-3 Ur Squamous Epith Cells RARE Squamous Urine Bacteria Rare Ur Microscopic Review INDICATED Urine Culture Comments INDICATED Urine Opiates Screen NEGATIVE Ur Buprenorphine Scrn NEGATIVE Ur Oxycodone Screen NEGATIVE Urine Methadone Screen NEGATIVE Ur Barbiturates Screen NEGATIVE Ur Tricyclics Screen NEGATIVE Ur Phencyclidine Scrn NEGATIVE Ur Amphetamine Screen NEGATIVE U Methamphetamines Scrn NEGATIVE U Benzodiazepines Scrn NEGATIVE Urine Cocaine Screen NEGATIVE U Cannabinoids Screen NEGATIVE Ur Drug Screen Comment CUTOFF CONC BELOW: Ethyl Alcohol PD Medical Decision Making - ED course ED course: CBC notable for hemoglobin of 6.6. This is at or near his recent baseline. INR 1.7. CMP notable for significant hyponatremia, chronic renal insufficiency, he had similar values back in January, hypomagnesemia. Ammonia level quite elevated at 269. No alcohol on board. He was administered a small dose of hypertonic saline as I was concerned he may have had a seizure, although this was before his ammonia level came back. He also has evidence of hepatorenal syndrome. He would benefit from transfer to higher level of care and decision to transfer was made at a few months after [address] looks grossly normal. He was administered a lactulose retention enema. Care to Dr Cumimns at 11pm shift chg pending call back from [place] for [facility]. - Critical Care Time(min): 40 Time Includes: Direct patient care, Review records, Reassess patient, Document care, Coordinate care, Medical consult, See progress note (no family arrived during my shift) Data interpretation: Labs, Pulse ox Procedures included in critical care time: Peripheral IV Departure - Departure Disposition: 02 Transfer Acute Care Hosp Clinical Impression: End stage liver disease, Hyponatremia, Alcoholic cirrhosis, Hepatic encephalopathy, Hepatorenal syndrome Condition: Critical
[2023-06-14 21:57] LABS: BASOPHILS % (AUTO) 0.2 %; EOSINOPHILS % (AUTO) 0.2 %; LYMPHOCYTES # (AUTO) 0.4 10^3/uL (1.5-3.5); LYMPHOCYTES % (AUTO) 7.2 %; MEAN CORPUSCULAR HEMOGLOBIN 36.3 pg (27.0-31.0); MEAN CORPUSCULAR HGB CONC 35.9 g/dL (32.0-36.0); MEAN CORPUSCULAR VOLUME 101.1 fL (80.0-94.0); MEAN PLATELET VOLUME 9.6 fL (7.4-11.4); MONOCYTES # (AUTO) 0.8 10^3/uL (0.0-1.0); MONOCYTES % (AUTO) 14.4 %; NEUTROPHILS # (AUTO) 4.5 10^3/uL (1.5-6.6); NEUTROPHILS % (AUTO) 77.5 %; PLT - PLATELET COUNT 77 10^3/uL (130-450); RED BLOOD COUNT 1.82 10^6/uL (4.70-6.10); RED CELL DISTRIBUTION WIDTH 14.4 % (12.0-15.0); WHITE BLOOD COUNT 5.9 x10^3/uL (4.8-10.8)
[2023-06-14 21:59] LABS: HGB - HEMOGLOBIN 6.6 g/dL (14.0-18.0)
[2023-06-14 22:01] LABS: HCT - HEMATOCRIT 18.4 % (42.0-52.0); INR 1.7 (0.8-1.2); PT - PROTHROMBIN TIME 18.2 secs (9.9-12.6)
[2023-06-14] MEDS ORDERED: THIAMINE 100 MG/1 ML 2 ML MDV ONE (22:02)
[2023-06-14 22:09] LABS: ALBUMIN 3.3 g/dL (3.2-5.5); ALBUMIN/GLOBULIN RATIO 0.7 (1.0-2.2); ALKALINE PHOSPHATASE 129 IU/L (42-121); ALT ALANINE AMINOTRANSFERASE 14 IU/L (10-60); AST ASPARTATE AMINOTRANSFERASE 73 IU/L (10-42); BILIRUBIN,TOTAL 6.5 mg/dL (0.2-1.0); BUN - BLOOD UREA NITROGEN 24 mg/dL (6-20); CALCIUM 8.7 mg/dL (8.5-10.3); CARBON DIOXIDE - CO2 19 mmol/L (21-32); CHLORIDE 90 mmol/L (101-111); CREATININE 3.1 mg/dL (0.6-1.3); ETOH - ETHANOL < 10.0 mg/dL; GFR - MDRD 22 (>89); GLUCOSE 131 mg/dL (74-104); LIPASE 84 U/L (11-82); MAGNESIUM 1.6 mg/dL (1.7-2.3); POTASSIUM 5.3 mmol/L (3.5-4.5); SODIUM 122 mmol/L (135-145)
[2023-06-14] MEDS ORDERED: LACTULOSE 10 GM /15 ML UDC PR STA (22:23)
--- NOTE | 2023-06-14 22:42 | CT Report ---
PROCEDURE: Head WO INDICATIONS: ams TECHNIQUE: Noncontrast 4.5 mm thick angled axial sections acquired from the foramen magnum to the vertex. For r adiation dose reduction, the following was used: automated exposure control, adjustment of mA and/or kV according to patient size. COMPARISON: CT head 01/15/2023. FINDINGS: Image quality: Excellent. CSF spaces: Basal cisterns are patent. No extra-axial fluid collections. Ventricles are normal in size and shape. Brain: No midline shift. No intracranial masses or hemorrhage. Morales-white matter interface is norm al. Skull and face: Calvarium and visualized facial bones are intact, without suspicious lesions. Sinuses: Visualized sinuses and mastoids are clear. IMPRESSION: No acute intracranial pathology. Reviewed by: Jessee Kellogg MD on 06/14/2023 10:41 PM PST Approved by: Jessee Kellogg MD on 06/14/2023 10:41 PM PST Station ID: [id number]
[2023-06-14] MEDS ORDERED: LACTULOSE 10 GM /15 ML UDC ONE ×3 (22:50→22:55)
[2023-06-14] MEDS ORDERED: SODIUM CHLORIDE 3% HYPERTONIC 50 ML IV SCH (23:00)
[2023-06-14 23:08] LABS: GLUCOSE, URINE (UA) NEGATIVE (NEGATIVE); KETONES,URINE (UA) TRACE mg/dL (NEGATIVE); LEUKOCYTE ESTERASE, URINE NEGATIVE (NEGATIVE); NITRITE,URINE POSITIVE (NEGATIVE); OCCULT BLOOD,URINE NEGATIVE (NEGATIVE); PH,URINE 5.5 PH (5.0-7.5); PROTEIN,URINE TRACE mg/dL (NEGATIVE); UROBILINOGEN,URINE 4 E.U./dL (NORMAL)
[2023-06-14 23:17] LABS: AMPHETAMINE SCREEN,URINE NEGATIVE (NEGATIVE); BARBITURATE SCREEN,UR NEGATIVE (NEGATIVE); BENZODIAZEPINES SCREEN, URINE NEGATIVE (NEGATIVE); BILIRUBIN,URINE MODERATE (NEGATIVE); BUPRENORPHINE SCREEN, URINE NEGATIVE (NEGATIVE); CLARITY,URINE CLEAR (CLEAR); COCAINE SCREEN URINE NEGATIVE (NEGATIVE); ICTOTEST,URINE POSITIVE; METHADONE SCREEN, URINE NEGATIVE (NEGATIVE); METHAMPHETAMINES SCREEN, URINE NEGATIVE (NEGATIVE); OPIATE SCREEN, URINE NEGATIVE (NEGATIVE); OXYCODONE SCREEN, URINE NEGATIVE (NEGATIVE); THC CANNABINOID SCREEN, URINE NEGATIVE (NEGATIVE); TRICYCLIC ANTIDEPRESSANT,URINE NEGATIVE (NEGATIVE)
[2023-06-14 23:18] LABS: BACTERIA,URINE Rare /HPF (None Seen); RBC,URINE 0-5 /HPF (0-5); SQUAMOUS EPITHELIAL CELL,UR RARE Squamous (<= Few); WBC,URINE 0-3 /HPF (0-3)
--- NOTE | 2023-06-14 23:44 | ED Physician Documentation ---
ED Addendum - Addendum Addendum: 06/14/23 23:40 - Dr. Ramírez at [facility] - accepting in transfer. Transfer center will call back with bed availability. 06/15/23 00:36 Plan to intubate prior to transport for airway protection given patient persistent GCS 6-7. CRITICAL CARE BILLING FOR DR. RING CARE OF PATIENT ON 06/15/23 I have discussed the case with STAFF. I have personally performed a history, physical exam, and my own medical decision making. I have reviewed the note and agree with the findings and plan . Upon my evaluation, this patient had a high probability of imminent or life- threatening deterioration due to metabolic encephalopathy, which required my direct attention, intervention, and personal management. I have personally provided 40 minutes of critical care time exclusive of time spent on separately billable procedures. Time includes review of laboratory data, radiology results, discussion with consultants, and monitoring for potential decompensation. Interventions were performed as documented above. EDW 06/15/23 01:38 Disposition transfer Condition critical Impression 1. alcoholic cirrhosis 2. metabolic encephalopathy 3. hyperammonemia 06/15/23 01:40 Procedure - Procedure Note Consent obtained from mother for intubation for airway protection given persistent AMS with GCS 6. Patient intubated with 8 -0 ET tube using 4-0 mac video laryngoscope. Confirmed correct ETT placement with BL breath sounds, co2 color change and by cxr. NG tube removed during intubation and replaced following procedure.
--- NOTE | 2023-06-15 00:34 | XRAY Report ---
PROCEDURE: Chest for Line Placement INDICATIONS: ng tube placement TECHNIQUE: One view of the chest was acquired. COMPARISON: None. FINDINGS: Surgical changes and devices: None. Lungs and pleura: No pleural effusions or pneumothorax. Lungs are clear. Mediastinum: Mediastinal contours appear normal. Heart size is normal. Bones and chest wall: No suspicious bony lesions. Overlying soft tissues appear unremarkable. IMPRESSION: No NG tube is seen. No acute cardiopulmonary process. Reviewed by: Jessee Rivas MD on 06/15/2023 12:33 AM PST Approved by: Jessee Rivas MD on 06/15/2023 12:33 AM PST Station ID: [id number]
[2023-06-15] MEDS ORDERED: ROCURONIUM 50 MG/5 ML VIAL IVP STA (00:35)
[2023-06-15] MEDS ORDERED: ETOMIDATE 40 MG/20 ML VIAL IVP STA (00:35)
[2023-06-15] MEDS ORDERED: MIDAZOLAM DRIP 50 MG/50 ML 50 MG/50 ML BAG IV SCH (01:00)
[2023-06-15 01:02] LABS: ACETAMINOPHEN 0.2 ug/mL; SALICYLATE < 1.5 mg/dL
[2023-06-15 01:42] VITALS: BP 143/83; O2SAT 97
== END 2023-06-15 01:55 | disposition short-term general hospital (02) ==
LOC: EDUNIT# → ED 21:37
DX: K72.10 Chronic hepatic failure without coma (principal); K76.82 Hepatic encephalopathy; E72.20 Disorder of urea cycle metabolism, unspecified; K70.30 Alcoholic cirrhosis of liver without ascites; N18.9 Chronic kidney disease, unspecified; K76.7 Hepatorenal syndrome; E87.1 Hypo-osmolality and hyponatremia; E83.42 Hypomagnesemia
CPT/HCPCS: 31500; 36415; 51702; 70450; 80053; 80306; 80307; 80320; 80329; 81001; 82140; 83690; 83735; 85025; 85610; 87086; 87181; 87635; 96365; 96375; 99291; A9270; J3411; J7040; 81003